=== PATIENT | female | born 1995 | race Caucasian/White ===

== ENCOUNTER 2016-05-10 16:22 | Emergency (ER) | payer OTHER ==
[~2016-05-10] VITALS: Ht 154.9 cm; Wt 68.3 kg
[~2016-05-10 16:22] MED LIST: BCPILLS PO; HYDR-5688 PO; INSPMPHMLG INJ
[2016-05-10 16:28] VITALS: TEMP 37.1; Ht 154.9 cm; Wt 68.3 kg
[2016-05-10] MEDS ORDERED: SODIUM CHLORIDE 0.9% 1000ML 1,000 ML IV STA (17:36)
[2016-05-10] MEDS ORDERED: ONDANSETRON INJ 2 MG/ML 2 ML VIAL IV STA (17:36)
[2016-05-10 17:57] LABS: MANUAL MICROSCOPIC REQUIRED? NO; REVIEW REQ? NO; URINE APPEARANCE CLEAR (CLEAR); URINE BILIRUBIN NEG (NEG); URINE COLOR YELLOW; URINE EPITHELIAL CELL AUTO 20-30 /lpf (0-5); URINE NITRITE NEG (NEG); UROBILINOGEN NEG (NEG)
[2016-05-10 18:09] LABS: BASO % 0.3 %; BASO ABS # 0.02 K/uL (0-0.2); COMPLETE YES; HEMATOCRIT 43.1 % (37-47); IG% 0.3 %; LYMPH % 32.5 %; LYMPH ABS # 2.04 K/uL (1.2-3.4); MEAN CELL VOLUME 88.7 fL (80-100); MEAN CORPUSCULAR HEMOGLOBIN 31.1 pg (25-34); MEAN PLATELET VOLUME 10.6 fL (7.4-10.4); MONO % 6.7 %; NEUT % 59.2 %; PLATELET COUNT 213 K/uL (130-400); RED BLOOD COUNT 4.86 M/uL (4.2-5.4); WHITE BLOOD COUNT 6.27 K/uL (4.8-10.8)
[2016-05-10 18:31] LABS: ALT/SGPT 19 U/L (12-78); BLOOD UREA NITROGEN 7 mg/dl (7-18); BUN/CREATININE RATIO 11.4 (10-20); CALCIUM 9.1 mg/dl (8.5-10.1); CARBON DIOXIDE 23 mmol/L (21-32); CHLORIDE 107 mmol/L (98-107); CREATININE 0.63 mg/dl (0.60-1.20); GLUCOSE 70 mg/dl (70-99); POTASSIUM 3.5 mmol/L (3.5-5.1); SODIUM 140 mmol/L (136-145)
[2016-05-10 18:33] LABS: ALKALINE PHOSPHATASE 83 U/L (45-117); AST/SGOT 10 U/L (15-37)
--- NOTE | 2016-05-10 20:04 | DIAGNOSTIC IMAGING REPORT ---
ABDOMEN AND PELVIS CT WITHOUT CONTRAST CT DOSE: 625.04 mGy.cm HISTORY: Pain b/l lower back pain eval for stone TECHNIQUE: Multiaxial CT images of the abdomen and pelvis were performed without the use of intravenous and oral contrast according to the standard department stone protocol. COMPARISON STUDY: 10/26/2013 FINDINGS: Lung bases remain clear. Liver spleen and pancreas are unremarkable. Kidneys negative for calcification or hydronephrosis. Bowel pattern is nonobstructive. The appendix is normal. Bladder is midline. There is no free fluid within the pelvic cul-de-sac. The appendix is normal. IMPRESSION: Negative study Electronically signed by: Sergey Yeung M.D. 05/10/2016 8:03 PM Dictated Date/Time: 05/10/2016 7:56 PM
[2016-05-10] MEDS ORDERED: SULFAMETHOXAZOLE/TRIMETHOPRIM DS 800/160MG TAB PO STA (20:13)
[2016-05-10] MEDS ORDERED: ONDA4TAB10 SL (20:13)
[2016-05-10] MEDS ORDERED: SULF800T23 PO (20:13)
[2016-05-10 20:34] VITALS: BP 130/85; PULSE 73; O2SAT 99
--- NOTE | 2016-05-10 22:30 | EMERGENCY ROOM VISIT NOTE ---
History Report prepared by Jules: Luis Enrique Arredondo Under the Supervision of: Dr. Zak Albarado M.D. First contact with patient: 17:30 Chief Complaint: ILLNESS Stated Complaint: NAUSEA, VOMITING, B/L BACK PAIN, FATIGUE History of Present Illness The patient is a 20 year old female who presents to the Emergency Room with complaints of constant bilateral lower back pain that started two days ago. The pain is aching in nature and does not radiate to her legs. The pain feels like a past kidney infection that she had two years ago. The patient also complains of nausea and intermittent vomiting for the past five days. She has not vomited today. She denies fevers, abdominal pain, burning with urination or urinary frequency, or abnormal vaginal bleeding or discharge. The patient denies any recent strenuous activity, heavy lifting or falls. She denies any history of kidney stones. She denies hematuria. Source of History: patient Onset: two days ago Position: back (lower bilateral) Symptom Intensity: moderate Quality: ache Timing: constant Associated Symptoms: + nausea, + vomiting, No abdominal pain, No fevers, No urinary symptoms Review of Systems See HPI for pertinent positives & negatives. A total of 10 systems reviewed and were otherwise negative. Past Medical & Surgical Medical Problems: (1) Breech presentation (2) delivery delivered (3) Complicated (4) Diabetes mellitus (5) DKA, type 1 (6) Fever (7) premature rupture of membranes (8) Pyelonephritis Family History Cancer Diabetes mellitus Heart disease Hypertension Kidney disease Kidney stones Social History Smoking Status: Never Smoker Alcohol Use: none Marital Status: single Housing Status: lives with family Occupation Status: employed Current/Historical Medications Scheduled Control Pills ( Control Pills), 1 TAB PO DAILY Insulin Human Lispro (Insulin Humalog Pump ), UNITS INJ UD Ondasetron Odt (Zofran Odt), 4 MG SL Q6H Sulfa/Trimethoprim (Bactrim Ds 800MG/160MG), 1 TAB PO BID Allergies Coded Allergies: No Known Allergies (Verified , 05/10/16) Physical Exam Vital Signs Date Time Temp Pulse Resp B/P Pulse Ox O2 Delivery O2 Flow Rate FiO2 05/10/16 20:34 73 20 130/85 99 05/10/16 18:53 86 20 119/63 100 Room Air 05/10/16 16:28 37.1 83 18 130/80 97 Room Air Physical Exam Constitutional: Vital signs reviewed. Eyes: Pupils are equal round reactive to light. Conjunctiva are noninjected. ENT: Pharynx is clear without erythema or exudate. Mucous membranes are moist. Neck supple without meningeal signs. Respiratory: Clear to auscultation bilaterally. Breath sounds are equal bilaterally. Cardiovascular: Regular rate and rhythm. No rubs or gallops. GI: Soft, nondistended and nontender. Bowel sounds are present. Musculoskeletal: No peripheral edema. No CVA tenderness. No midline tenderness to the thoracic or lumbosacral spine. Integumentary: No cyanosis. Neurological: The patient is awake and alert. No focal deficits. Psychiatric: Normal affect. Medical Decision & Procedures ER Provider Diagnostic Interpretation: CT results as stated below per my review and radiologist interpretation. ABDOMEN AND PELVIS CT WITHOUT CONTRAST CT DOSE: 625.04 mGy.cm HISTORY: Pain b/l lower back pain eval for stone TECHNIQUE: Multiaxial CT images of the abdomen and pelvis were performed without the use of intravenous and oral contrast according to the standard department stone protocol. COMPARISON STUDY: 10/26/2013 FINDINGS: Lung bases remain clear. Liver spleen and pancreas are unremarkable. Kidneys negative for calcification or hydronephrosis. Bowel pattern is nonobstructive. The appendix is normal. Bladder is midline. There is no free fluid within the pelvic cul-de-sac. The appendix is normal. IMPRESSION: Negative study Electronically signed by: Sergey Yeung M.D. 05/10/2016 8:03 PM Dictated Date/Time: 05/10/2016 7:56 PM Laboratory Results 05/10/16 18:00 Red Blood Count 4.86, Mean Corpuscular Volume 88.7, Mean Corpuscular Hemoglobin 31.1, Mean Corpuscular Hemoglobin Concent 35.0, Mean Platelet Volume 10.6, Neutrophils (%) (Auto) 59.2, Lymphocytes (%) (Auto) 32.5, Monocytes (%) (Auto) 6.7, Eosinophils (%) (Auto) 1.0, Basophils (%) (Auto) 0.3, Neutrophils # (Auto) 3.71, Lymphocytes # (Auto) 2.04, Monocytes # (Auto) 0.42, Eosinophils # (Auto) 0.06, Basophils # (Auto) 0.02 05/10/16 18:00 Test 05/10/16 17:45 05/10/16 18:00 Urine Color YELLOW Urine Appearance CLEAR (CLEAR) Urine pH 7.0 (4.5-7.5) Urine Specific [place] 1.000 (1.000-1.030) Urine Protein NEG (NEG) Urine Glucose (UA) NEG (NEG) Urine Ketones NEG (NEG) Urine Occult Blood NEG (NEG) Urine Nitrite NEG (NEG) Urine Bilirubin NEG (NEG) Urine Urobilinogen NEG (NEG) Urine Leukocyte Esterase SMALL (NEG) Urine WBC (Auto) 5-10 /hpf (0-5) Urine RBC (Auto) 0-4 /hpf (0-4) Urine Hyaline Casts (Auto) 0 /lpf (0-5) Urine Epithelial Cells (Auto) 20-30 /lpf (0-5) Urine Bacteria (Auto) NEG (NEG) Urine Test NEG (NEG) White Blood Count 6.27 K/uL (4.8-10.8) Red Blood Count 4.86 M/uL (4.2-5.4) Hemoglobin 15.1 g/dL (12.0-16.0) Hematocrit 43.1 % (37-47) Mean Corpuscular Volume 88.7 fL (80-100) Mean Corpuscular Hemoglobin 31.1 pg (25-34) Mean Corpuscular Hemoglobin Concent 35.0 g/dl (32-36) Platelet Count 213 K/uL (130-400) Mean Platelet Volume 10.6 fL (7.4-10.4) Neutrophils (%) (Auto) 59.2 % Lymphocytes (%) (Auto) 32.5 % Monocytes (%) (Auto) 6.7 % Eosinophils (%) (Auto) 1.0 % Basophils (%) (Auto) 0.3 % Neutrophils # (Auto) 3.71 K/uL (1.4-6.5) Lymphocytes # (Auto) 2.04 K/uL (1.2-3.4) Monocytes # (Auto) 0.42 K/uL (0.11-0.59) Eosinophils # (Auto) 0.06 K/uL (0-0.5) Basophils # (Auto) 0.02 K/uL (0-0.2) RDW Standard Deviation 38.1 fL (36.4-46.3) RDW Coefficient of Variation 11.8 % (11.5-14.5) Immature Granulocyte % (Auto) 0.3 % Immature Granulocyte # (Auto) 0.02 K/uL (0.00-0.02) Anion Gap 10.0 mmol/L (3-11) Est Creatinine Clear Calc Drug Dose 124.8 ml/min Estimated GFR () 148.6 Estimated GFR (Non- 128.2 BUN/Creatinine Ratio 11.4 (10-20) Calcium Level 9.1 mg/dl (8.5-10.1) Total Bilirubin 0.4 mg/dl (0.2-1) Direct Bilirubin < 0.1 mg/dl (0-0.2) Aspartate Amino Transf (AST/SGOT) 10 U/L (15-37) Alanine Aminotransferase (ALT/SGPT) 19 U/L (12-78) Alkaline Phosphatase 83 U/L (45-117) Total Protein 7.4 gm/dl (6.4-8.2) Albumin 3.8 gm/dl (3.4-5.0) Lipase 74 U/L (73-393) Laboratory results as reviewed by me. Medications Administered Medications (Trade) Dose Ordered Sig/Mariam Route Start Time Stop Time Status Last Admin Dose Admin Ondansetron HCl 4 mg 4 mg NOW STAT IV 05/10/16 17:36 05/10/16 17:37 DC 05/10/16 18:03 4 MG Sodium Chloride (Nss 1000ml) 1,000 ml @ 999 mls/hr Q1H1M STAT IV 05/10/16 17:36 05/10/16 18:36 DC 05/10/16 18:04 999 MLS/HR Trimethoprim/ Sulfamethoxazole (Septra Ds 800/ 160MG Tab) 1 tab NOW STAT PO 05/10/16 20:13 05/10/16 20:14 DC 05/10/16 20:26 1 TAB ED Course 1732: The patient was evaluated in room C12b. A complete history and physical exam was performed. 1736: NSS 1000 ml @ 999 mls/hr, Zofran 4 mg IV. 1900: The patient is feeling better. I discussed the results and recommended a CT scan. She agreed. 2009: Discussed the CT results. She will be discharged. 2013: Septra Ds 800/160 mg PO. Medical Decision This is a 20-year-old female presents with back pain with nausea and vomiting. Differential diagnosis includes UTI, pyelonephritis, kidney stone, , metabolic derangement, strain. I did perform a limited focused review of portions of the patient's old chart on the electronic medical record. The patient has had no recent pertinent visits to this hospital. I did evaluate the patient as noted above. The patient is presenting with lower back pain with vomiting. She states her symptoms are similar to when she had a kidney infection. She denies any urinary symptoms. IV access was established. I did treat patient with normal saline IV and Zofran IV. I did order and personally review the patient's urinalysis as described above. The findings are equivocal for infection. A urine culture was sent. Given her prior history of kidney infection, however, I did treat her with Bactrim. I did order and review the patient's blood work as noted in the electronic medical record. Her white blood cell count is not elevated. After discussion with the patient, I did order a CT of the abdomen and pelvis. I did review the images myself as well as the radiology report as described above. There is no evidence of acute abnormality. The cause of her back pain is unclear at this time. I did recommend close follow up with her doctor. She was given a prescription for Bactrim and Zofran and given return instructions as outlined below. Impression Primary Impression: Low back pain Additional Impressions: Vomiting UTI (urinary tract infection) Scribe Attestation The scribe's documentation has been prepared under my direct and personally reviewed by me in its entirety. I confirm that the note above accurately reflects all work, treatment, procedures, and medical decision making performed by me. Departure Information Dispostion Home / Self-Care Prescriptions Sulfa/Trimethoprim (Bactrim Ds 800MG/160MG) Tab 1 TAB PO BID, #14 TAB Prov: Zak Albarado M.D. 05/10/16 Ondasetron Odt (ZOFRAN ODT) 4 Mg Tab 4 MG SL Q6H for Nausea, #10 TAB Prov: Zak Albarado M.D. 05/10/16 Referrals No Doctor, Assigned (PCP) Forms HOME CARE DOCUMENTATION FORM, IMPORTANT VISIT INFORMATION, WORK / SCHOOL INSTRUCTIONS Patient Instructions ED Back Pain Acute Chronic, My [facility] Additional Instructions You have been examined and treated today on an emergency basis only. This is not a substitute for, or an effort to provide, complete comprehensive medical care. It is impossible to recognize and treat all injuries or illnesses in a single emergency department visit. It is therefore important that you follow up closely with your physician. Call as soon as possible for an appointment. Return for worsening symptoms or if you develop fever, vomiting, abdominal pain , loss of control of your bowel or bladder, numbness or weakness to your legs, numbness to your private area, difficulty urinating, or any other concerning symptoms. Problem Qualifiers Primary Impression: Low back pain Chronicity: acute Back pain laterality: bilateral Sciatica presence: without sciatica Qualified Codes: M54.5 - Low back pain Additional Impressions: Vomiting Vomiting type: unspecified Vomiting Intractability: non-intractable Nausea presence: with nausea Qualified Codes: R11.2 - Nausea with vomiting, unspecified UTI (urinary tract infection) Urinary tract infection type: site unspecified Hematuria presence: without hematuria Qualified Codes: N39.0 - Urinary tract infection, site not specified
== END 2016-05-10 20:35 | disposition home or self-care (01) ==
LOC: C.EDB 16:23 → C.EDC 20:35
DX: M54.5 Low back pain (principal); N39.0 Urinary tract infection, site not specified; R11.10 Vomiting, unspecified; A49.8 Other bacterial infections of unspecified site; E11.9 Type 2 diabetes mellitus without complications; Z96.41 Presence of insulin pump (external) (internal)

== ENCOUNTER → 2016-05-15 | Outpatient (CLI) | payer OTHER ==
[~2016-05-15] MED LIST changes: -HYDR-5688 PO; +ONDA4TAB10 SL; +SULF800T23 PO
== END | disposition home or self-care (01) ==
LOC: C.PAPS 09:55
PROVIDERS: ATTEND Physician Assistant
DX: Z12.4 Encounter for screening for malignant neoplasm of cervix (principal)

== ENCOUNTER → 2016-05-15 | Outpatient (CLI) | payer OTHER | END | disposition home or self-care (01) | LOC: C.LABSPEC 17:36 | PROVIDERS: ATTEND Physician Assistant | DX: Z01.419 Encounter for gynecological examination (general) (routine) without abnormal findings (principal) ==

== ENCOUNTER → 2016-05-31 | Outpatient (CLI) | payer OTHER ==
[2016-05-31 18:24] LABS: RATIO 10.4 mcg/mg (0-30.0); THYROID STIMULATING HORMONE 2.06 uIu/ml (0.300-4.500)
[2016-06-01 06:15] LABS: ESTIMATED AVERAGE GLUCOSE 203 mg/dl; HA1C FLAG Normal (Normal)
== END | disposition home or self-care (01) ==
LOC: C.LAB1850 16:36
PROVIDERS: ATTEND Internal Medicine Endocrinology, Diabetes & Metabolism
DX: E10.9 Type 1 diabetes mellitus without complications (principal); E55.9 Vitamin D deficiency, unspecified

== ENCOUNTER → 2016-09-17 | Outpatient (CLI) | payer OTHER ==
[2016-09-17 16:30] LABS: URINE APPEARANCE CLEAR (CLEAR); URINE BILIRUBIN NEG (NEG); URINE COLOR YELLOW; URINE NITRITE NEG (NEG); URINE SPECIFIC GRAVITY 1.037 (1.000-1.030); UROBILINOGEN NEG (NEG)
[2016-09-17 16:47] LABS: MANUAL MICROSCOPIC REQUIRED? NO; REVIEW REQ? NO
== END | disposition home or self-care (01) ==
LOC: C.LAB1850 15:21
PROVIDERS: ATTEND Physician Assistant
DX: R39.9 Unspecified symptoms and signs involving the genitourinary system (principal)

== ENCOUNTER → 2017-09-29 | Outpatient (CLI) | payer OTHER ==
[~2017-09-29] MED LIST changes: +BUPR-267 PO; +CHLO4TAB20 PO; -ONDA4TAB10 SL; -SULF800T23 PO
[2017-09-29 18:01] LABS: ALBUMIN 3.3 gm/dl (3.4-5.0); ALKALINE PHOSPHATASE 79 U/L (45-117); ALT/SGPT 26 U/L (12-78); AST/SGOT 12 U/L (15-37); BLOOD UREA NITROGEN 5 mg/dl (7-18); CALCIUM 8.6 mg/dl (8.5-10.1); CARBON DIOXIDE 21 mmol/L (21-32); CHOLESTEROL 136 mg/dl (0-200); CREATININE 0.81 mg/dl (0.60-1.20); GLUCOSE 279 mg/dl (70-99); LDL CHOLESTEROL CALCULATED 62 mg/dl; POTASSIUM 4.1 mmol/L (3.5-5.1); SODIUM 135 mmol/L (136-145); TOTAL PROTEIN 7.1 gm/dl (6.4-8.2)
[2017-09-30 06:09] LABS: HEMOGLOBIN A1C 9.6 % (4.5-5.6)
== END | disposition home or self-care (01) ==
LOC: C.LABBFT 11:24
PROVIDERS: ATTEND Physician Assistant Medical
DX: R74.8 Abnormal levels of other serum enzymes (principal); E10.9 Type 1 diabetes mellitus without complications

== ENCOUNTER 2020-10-23 10:54 | Inpatient (IN) ==
[2020-10-23] MEDS ORDERED: SODIUM CHLORIDE 0.9% 1000ML 2,000 ML IV ONE (12:14)
[2020-10-23] MEDS ORDERED: ACETAMINOPHEN 1,000 MG/100 ML VIAL IV STA (12:14)
[2020-10-23] MEDS ORDERED: FAMOTIDINE 20MG IV PUSH 20 MG/5 ML SYR IV STA (12:14)
[2020-10-23] MEDS ORDERED: ONDANSETRON INJ 2 MG/ML 2 ML VIAL IV STA (12:14)
[2020-10-23 12:29] LABS: Appearance Urine Clear (Clear); Bilirubin Urine Negative (Negative); Blood Urine Negative (Negative); Color Urine Yellow; Glucose Urine UA 3+ (Negative); Ketones Urine 4+ (Negative); Leukocyte Esterase Urine Negative (Negative); Nitrite Urine Negative (Negative); Protein Urine Negative (Negative); Specific Gravity Urine 1.034 (1.000-1.030); Urobilinogen Urine Negative (Negative)
[2020-10-23 12:38] LABS: Basophils # (auto) 0.02 K/uL (0-0.2); Basophils % (auto) 0.3 %; Eosinophils # (auto) 0.03 K/uL (0-0.5); Eosinophils % (auto) 0.4 %; Hematocrit (blood only) 45.3 % (37-47); Hemoglobin 15.6 g/dL (12.0-16.0); Immature Granulocytes # (auto) 0.01 K/uL (0.00-0.02); Immature Granulocytes % (auto) 0.1 %; Lymphocytes # (auto) 0.93 K/uL (1.2-3.4); Lymphocytes % (auto) 12.2 %; Mean Corpuscular Hemoglobin 30.4 pg (25-34); Mean Corpuscular Hgb Conc 34.4 g/dL (32-36); Mean Corpuscular Volume 88.1 fL (80-100); Mean Platelet Volume 11.1 fL (7.4-10.4); Monocytes # (auto) 0.23 K/uL (0.11-0.59); Neutrophils # (auto) 6.42 K/uL (1.4-6.5); Platelet Count 216 K/uL (130-400); RDW Coefficient of Variation 11.5 % (11.5-14.5); Red Blood Count 5.14 M/uL (4.2-5.4); White Blood Count 7.64 K/uL (4.8-10.8)
[2020-10-23 12:56] LABS: Pregnancy Test, Serum Negative (Negative)
[2020-10-23 13:09] LABS: Albumin Level 4.1 gm/dl (3.4-5.0); BUN Creatinine Ratio 14.8 (10-20); Bilirubin Direct 0.2 mg/dl (0-0.2); Bilirubin,Total 0.6 mg/dl (0.2-1); Calcium 9.9 mg/dl (8.5-10.1); Creatinine Clr Calc Pharmacy 71.2 ml/min; Est GFR (African American) 90.1 ml/min; Est GFR (Non-African American) 77.7 ml/min; Globulin 4.2 gm/dl (2.5-4.0); Phosphorus 4.1 mg/dl (2.5-4.9); Potassium 5.1 mmol/L (3.5-5.1); Total Protein 8.3 gm/dl (6.4-8.2)
[2020-10-23] MEDS ORDERED: METOCLOPRAMIDE HCL INJ 5 MG/ML 2 ML VIAL IV STA (13:33)
[2020-10-23] MEDS ORDERED: diphenhydrAMINE 50 MG/ML VIAL IV STA (13:33)
[2020-10-23 13:47] LABS: Beta-Hydroxybutyrate 84.35 mg/dl (0.2-2.81)
[2020-10-23] MEDS ORDERED: STAT IV Infusion **Titration per Protocol STA ×4 (13:54→14:39)
[2020-10-23] MEDS ORDERED: DEXTROSE 50% 50 ML SYRINGE IV PRN (14:15)
[2020-10-23] MEDS ORDERED: CARBOHYDRATES FOR HYPOGLYCEMIA PO PRN (14:15)
[2020-10-23] MEDS ORDERED: GLUCOSE 10 TABS/TUBE PO PRN (14:15)
[2020-10-23] MEDS ORDERED: GLUCOSE 40% GEL 15 GM TUBE PO PRN (14:15)
[2020-10-23] MEDS ORDERED: GLUCAGON FOR INJ 1 MG VIAL IM PRN (14:15)
[2020-10-23 14:21] LABS: Base Excess VBG -16.8 mEq/L; Oxygen Saturation VBG 82.8 %; pH VBG 7.13 (7.36-7.41)
[2020-10-23] MEDS: INSULIN REGULAR 250 UNITS in SODIUM CHLORIDE 0.9% 247.5 ML IV SCH (14:27)
[2020-10-23] MEDS: SODIUM CHLOR 0.45% + 20MEQ KCL 20 MEQ/1,000 ML BAG IV SCH ×2 (14:27→19:03)
--- NOTE | 2020-10-23 14:32 | History & Physical Report ---
Date of Service October 23, 2020 Assessment & Plan (1) Diabetes mellitus type 1: Plan: Patient an active ketoacidosis with an anion gap of 17 Will admit to PCU bed Start insulin protocol Will keep on clear liquids only for now, advance when sugars normalize Symptomatic treatment for nausea and headache History of Present Illness Chief Complaint: Nausea and vomiting Primary Care Provider: Nito Velazco MD This is a 25-year-old female with past medical history of type 1 diabetes mellitus on insulin pump, migraine and that presents today complaining nausea vomiting. Patient is somewhat uncomfortable secondary to headache but she does answer questions appropriately. Patient tells me she is feeling fine yesterday but approximately 830 this morning she started to have some nausea. This became vomiting and some generalized abdominal pain diarrhea 9 this morning. She is on insulin pump and changed the site yesterday evening. The pump seem to be functioning normally she does not feel that there were any issues with the equipment. She recognizes symptoms of DKA and came to the emergency room. She was found to have a blood sugar over 400 with an anion gap of 17. Patient is now being admitted for treatment of diabetic ketoacidosis. Allergies Allergy/AdvReac Type Severity Reaction Status Date / Time No Known Allergies Allergy Verified 10/23/20 12:18 Home Medications Medication Instructions Recorded Confirmed Type glucagon HCl 1 mg/mL solution for 1 mg SUBCUT UD PRN #1 ea 10/02/18 10/23/20 History injection insulin lispro 100 unit/mL 100 unit CONTINUOUS SUBCUTANEOUS 01/24/20 10/23/20 Rx subcutaneous solution (Humalog INFUSION DAILY 90 Days #90 ml U-100 Insulin) norethindrone 1 mg-ethinyl 1 tab PO DAILY 10/23/20 10/23/20 History estradiol 20 mcg (21)-iron 75 mg (7) tablet (Microgestin FE 03/15 (28)) venlafaxine 37.5 mg 37.5 mg PO DAILY 10/23/20 10/23/20 History capsule,extended release 24 hr venlafaxine 75 mg capsule,extended 75 mg PO DAILY 10/23/20 10/23/20 History release 24 hr Past Med/Surg History Medical History Chlamydia infection Depression with anxiety Diabetes mellitus type 1 Genital herpes simplex History of pyelonephritis Varicella Vitamin D deficiency Surgical History No significant past surgical history Family History Unknown Type 1 diabetes mellitus Hypertension Thyroid disorder Grandmother Cervical cancer Maternal Grandmother Grandfather Type 2 diabetes mellitus Maternal Other Cerebral aneurysm Denies family history of Ovarian cancer Prostate cancer Myocardial infarction Breast cancer Colorectal cancer Uterine cancer Social History Smoking Status: Current every day smoker Tobacco Type: Cigarettes Second Hand Exposure: Yes; Hx Alcohol Use: Yes Hx Substance Use: No Preferred Language: Lithuanian Visual Impairment: No Limitations Hearing Ability: Normal marital status: single Current Living Situation: Family current occupational status: employed current occupation: [employer] Feels Safe at Home: Yes Dental Care, Regularly: No Physical Activity Frequency: Does not Exercise Review of Systems Constitutional: no fever, no chills, no weakness, no weight loss and no weight gain Eyes: as per Subjective / HPI Respiratory: no cough, no chest congestion, no dyspnea and no dyspnea on exertion Cardiovascular: no chest pain, no orthopnea, no palpitations, no light headedness and no edema Gastrointestinal: + abdominal pain, + nausea and + vomiting; no constipation and no diarrhea/loose stools Genitourinary: no dysuria, no difficulty urinating, no urinary frequency, no urinary hesitancy, no urinary urgency and no flank pain Musculoskeletal: no back pain, no neck pain, no joint pain, no stiffness and no myalgia Integumentary: no rash Neurologic: + headache(s); no gait abnormality, no unsteadiness, no falls and no generalized weakness Physical Exam Constitutional: + ill appearing; no acute distress Neck: trachea midline, no thyromegaly Respiratory: normal respiratory effort Auscultation: lungs clear to auscultation bilaterally; no crackles, no rales, no rhonchi and no wheezes Cardiovascular: Rate/Rhythm: regular rate and regular rhythm Heart Sounds: normal S1 and normal S2 Gastrointestinal (Abdomen): Inspection/Auscultation: abdomen normal to inspection Percussion/Palpation: abdomen soft; abdomen nontender, no guarding, abdomen not rigid and no hepatosplenomegaly Skin: no rashes, warm and dry Results & Data Results & Data ([facility]) Vital Signs (Past 12 Hours) Vital Signs Temp Pulse Pulse Resp BP BP Pulse Ox 10/23/20 13:41 89 20 119/65 97 10/23/20 12:30 90 18 98 10/23/20 11:08 36.9 C 96 H 20 110/77 96 Laboratory Results Laboratory Results WBC 7.64 K/uL (4.8-10.8) 10/23/20 12:25 RBC 5.14 M/uL (4.2-5.4) 10/23/20 12:25 Hgb 15.6 g/dL (12.0-16.0) 10/23/20 12:25 Hct 45.3 % (37-47) 10/23/20 12:25 MCV 88.1 fL (80-100) 10/23/20 12:25 MCH 30.4 pg (25-34) 10/23/20 12:25 MCHC 34.4 g/dL (32-36) 10/23/20 12:25 RDW Std Deviation 37.0 fL (36.4-46.3) 10/23/20 12:25 RDW Coeff of [place] 11.5 % (11.5-14.5) 10/23/20 12:25 Plt Count 216 K/uL (130-400) 10/23/20 12:25 MPV 11.1 fL (7.4-10.4) H 10/23/20 12:25 Immature Gran % (Auto) 0.1 % 10/23/20 12:25 Neut % (Auto) 84.0 % 10/23/20 12:25 Lymph % (Auto) 12.2 % 10/23/20 12:25 [place] % (Auto) 3.0 % 10/23/20 12:25 Eos % (Auto) 0.4 % 10/23/20 12:25 Baso % (Auto) 0.3 % 10/23/20 12:25 Neut # (Auto) 6.42 K/uL (1.4-6.5) 10/23/20 12:25 Lymph # (Auto) 0.93 K/uL (1.2-3.4) L 10/23/20 12:25 [place] # (Auto) 0.23 K/uL (0.11-0.59) 10/23/20 12:25 Eos # (Auto) 0.03 K/uL (0-0.5) 10/23/20 12:25 Baso # (Auto) 0.02 K/uL (0-0.2) 10/23/20 12:25 Immature Gran # (Auto) 0.01 K/uL (0.00-0.02) 10/23/20 12:25 VBG pH 7.13 (7.36-7.41) L 10/23/20 13:56 VBG pCO2 34 mmHg (38-50) L 10/23/20 13:56 VBG pO2 56 mmHg 10/23/20 13:56 VBG HCO3 11 mmol/L 10/23/20 13:56 VBG O2 Saturation 82.8 % 10/23/20 13:56 VBG Base Excess -16.8 mEq/L 10/23/20 13:56 Barometric Pressure 730.4 mm/Hg 10/23/20 13:56 Sodium 132 mmol/L (136-145) L 10/23/20 12:25 Potassium 5.1 mmol/L (3.5-5.1) 10/23/20 12:25 Chloride 100 mmol/L (98-107) 10/23/20 12:25 Carbon Dioxide 15 mmol/L (21-32) L 10/23/20 12:25 Anion Gap 17.0 (3-11) H 10/23/20 12:25 BUN 15 mg/dl (7-18) 10/23/20 12:25 Creatinine 1.00 mg/dl (0.6-1.2) 10/23/20 12:25 Est Cr Clr Drug Dosing 71.2 ml/min 10/23/20 12:25 Est GFR ( Amer) 90.1 ml/min 10/23/20 12:25 Est GFR (Non-Af Amer) 77.7 ml/min 10/23/20 12:25 BUN/Creatinine Ratio 14.8 (10-20) 10/23/20 12:25 Glucose 422 mg/dl (70-99) H* 10/23/20 12:25 Calcium 9.9 mg/dl (8.5-10.1) 10/23/20 12:25 Phosphorus 4.1 mg/dl (2.5-4.9) 10/23/20 12:25 Magnesium 2.0 mg/dl (1.8-2.4) 10/23/20 12:25 Total Bilirubin 0.6 mg/dl (0.2-1) 10/23/20 12:25 Direct Bilirubin 0.2 mg/dl (0-0.2) 10/23/20 12:25 AST 20 U/L (15-37) 10/23/20 12:25 ALT 30 U/L (12-78) 10/23/20 12:25 Alkaline Phosphatase 124 U/L (45-117) H 10/23/20 12:25 Total Protein 8.3 gm/dl (6.4-8.2) H 10/23/20 12:25 Albumin 4.1 gm/dl (3.4-5.0) 10/23/20 12:25 Globulin 4.2 gm/dl (2.5-4.0) H 10/23/20 12:25 Albumin/Globulin Ratio 1.0 (0.9-2) 10/23/20 12:25 Lipase 54 U/L (73-393) L 10/23/20 12:25 Beta-Hydroxybutyric Acd 84.35 mg/dl (0.2-2.81) H 10/23/20 12:25 HCG, Qual Negative (Negative) 10/23/20 12:25 Urine Color Yellow 10/23/20 11:45 Urine Appearance Clear (Clear) 10/23/20 11:45 Urine pH 5.0 (4.5-7.5) 10/23/20 11:45 Ur Specific [place] 1.034 (1.000-1.030) H 10/23/20 11:45 Urine Protein Negative (Negative) 10/23/20 11:45 Urine Glucose (UA) 3+ (Negative) H 10/23/20 11:45 Urine Ketones 4+ (Negative) H 10/23/20 11:45 Urine Blood Negative (Negative) 10/23/20 11:45 Urine Nitrite Negative (Negative) 10/23/20 11:45 Urine Bilirubin Negative (Negative) 10/23/20 11:45 Urine Urobilinogen Negative (Negative) 10/23/20 11:45 Ur Leukocyte Esterase Negative (Negative) 10/23/20 11:45 COVID-19 Eval Order Covid19 at [facility] 10/23/20 12:30 SARS-CoV-2 (PCR) NEGATIVE (Negative) 10/23/20 12:30 PG Care Time/CCT Total # of Minutes Spent Total Time Spent with Patient: Total time spent is greater than 50% in coordination of care (as documented) at patient's floor/unit and/or counseling patient: Coding Level of Care Code 71565 Initial Inpt Care Lvl 3 Diagnoses Diabetes mellitus type 1 E10.9
--- NOTE | 2020-10-23 15:58 | Emergency Department Note ---
Impression & Plan Diabetic ketoacidosis associated with type 1 diabetes mellitus, Nausea & vomiting, Migraine, Acute dehydration ED Provider Note NAME: TANK Kelley ISAIAH AGE: 25 SEX: F ARRIVES VIA: Walk-In INFORMANT: Patient, ED PROVIDER(S): Dakota Wright MD CHIEF COMPLAINT: Vomiting, hyperglycemia. PLAN: Disposition: Admit MEDICAL DECISION MAKING: The patient is a pleasant 25-year-old woman with a past medical history of type 1 diabetes who presents to the emergency department with worsening nausea and vomiting and development of migraine that began this morning with elevation of her blood sugars in the 500s which have continued to be elevated despite admini stering her sliding scale from her pump. 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 Prior today she denies any recent illness including denies cough, congestion, fevers, chills, urinary symptoms. On arrival she appears uncomfortable but no acute distress, afebrile with stable vital signs. She appears clinically dry. Her abdomen is nontender. WBC, H/H and platelets within normal limits. Chemistry demonstrates anion gap metabolic acidosis with bicarb of 15 and anion gap of 17. Glucose is 422. Beta hydroxy butyric acid is 84. Sodium corrects to normal range. Electrolytes otherwise unremarkable. LFTs without significant abnormality. Lipase is not elevated. hCG was negative. UA without evidence of infection. COVID-19 PCR is negative. Patient was treated initially with 2 L IV fluid hydration and antiemetics. Given evidence of DKA she was ordered for maintenance fluid with potassium and insulin drip was ordered. Patient was in agreement with plan for admission. Case was discussed with Dr. Guerrero, [facility] hospitalist, who will evaluate the patient for admission. Triage Nursing notes reviewed and agree them. Prior medical records reviewed Vital Signs: reviewed and remarkable for no significant abnormalities Differential diagnosis: Gastroenteritis, food borne illness, infections, appendicitis, diverticulitis, inflammatory bowel disease, obstruction, GI bleed, biliary pathology, volvulus, as well as other pathologies. ER treatment provided: See below. Diagnostics interpreted by me: Cardiac Monitoring: An order for continuous cardiac monitoring was placed and demonstrated NSR, 96 bpm, no ectopy Laboratory studies: See below Imaging studies: See below Consultation(s): Case was discussed with Dr. Guerrero, [facility] hospitalist, who will evaluate the patient for admission. HPI: The patient is a pleasant 25-year-old woman with a past medical history of type 1 diabetes who presents to the emergency department with worsening nausea and vomiting and development of migraine that began this morning with elevation of her blood sugars in the 500s which have continued to be elevated despite administering her sliding scale from her pump. 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 Prior today she denies any recent illness including denies cough, congestion, fevers, chills, urinary symptoms. ROS: See above HPI for pertinent positives & negatives. A total of 10 systems reviewed and were otherwise negative. PAST MEDICAL HISTORY:See Below PAST SURGICAL HISTORY:See Below FAMILY HISTORY:See Below SOCIAL HISTORY:See Below HOME MEDICATIONS:See Below ALLERGIES:See Below VITALS:See Below PHYSICAL EXAMINATION: GENERAL: Awake, alert, uncomfortable-appearing, in no distress HENT: Normocephalic, atraumatic. Oropharynx with dry mucous membranes and otherwise unremarkable. EYES: Normal conjunctiva. Sclera non-icteric. NECK: Supple. No nuchal rigidity. FROM. No JVD. RESPIRATORY: Clear to auscultation. CARDIAC: Regular rate, normal rhythm. Extremities warm and well perfused. Pulses equal. ABDOMEN: Soft, non-distended. No tenderness to palpation. No rebound or guarding. No masses. RECTAL: Deferred. MUSCULOSKELETAL: Chest examination reveals no tenderness. The back is symmetrical on inspection without obvious abnormality. There is no CVA tenderness to palpation. No joint edema. LOWER EXTREMITIES: Calves are equal size bilaterally and non-tender. No edema. No discoloration. NEURO: Normal sensorium. No sensory or motor deficits noted. SKIN: No rash or jaundice noted. ED COURSE: Critical Care: I have personally spent greater than 45 minutes of critical care time in the direct management of this patient. This includes bedside care, interpretation of diagnostic studies, and testing, discussion with consultants, patient, and family members, and other required patient management activities. This 45 minutes is in excess of all separately billable procedures. Dakota Wright MD Past Med/Surg History Medical History Chlamydia infection Depression with anxiety Diabetes mellitus type 1 Genital herpes simplex History of pyelonephritis Varicella Vitamin D deficiency Surgical History No significant past surgical history Family History Unknown Type 1 diabetes mellitus Hypertension Thyroid disorder Grandmother Cervical cancer Maternal Grandmother Grandfather Type 2 diabetes mellitus Maternal Other Cerebral aneurysm Denies family history of Ovarian cancer Prostate cancer Myocardial infarction Breast cancer Colorectal cancer Uterine cancer Social History Smoking Status: Current some day smoker Tobacco Type: Cigarettes Cigarettes Per Day: 2; Second Hand Exposure: Yes; Tobacco Cessation Education Requested by Patient: Yes Hx Alcohol Use: Yes Alcohol type: beer Hx Substance Use: No Preferred Language: Citizen Of [place] Communication Ability: Effective Visual Impairment: No Limitations Hearing Ability: Normal Beliefs That Will Affect Care: None marital status: single Current Living Situation: Spouse and Family current occupational status: employed current occupation: [employer] Feels Safe at Home: Yes Dental Care, Regularly: No Physical Activity Frequency: Does not Exercise Assistive Devices: None Allergies Allergies Allergy/AdvReac Type Severity Reaction Status Date / Time No Known Allergies Allergy Verified 10/23/20 12:18 Home Meds Home Medications Medication Instructions Recorded Confirmed glucagon HCl 1 mg/mL solution for 1 mg SUBCUT UD PRN #1 ea 10/02/18 10/23/20 injection norethindrone 1 mg-ethinyl 1 tab PO DAILY 10/23/20 10/23/20 estradiol 20 mcg (21)-iron 75 mg (7) tablet (Microgestin FE 03/15 (28)) venlafaxine 37.5 mg 37.5 mg PO DAILY 10/23/20 10/23/20 capsule,extended release 24 hr venlafaxine 75 mg capsule,extended 75 mg PO DAILY 10/23/20 10/23/20 release 24 hr Previous Rx's Medication Instructions Recorded insulin lispro 100 unit/mL 100 unit CONTINUOUS SUBCUTANEOUS 01/24/20 subcutaneous solution (Humalog INFUSION DAILY 90 Days #90 ml U-100 Insulin) Results & Data (ED) Vital Signs Vital Signs - 24 hr 10/23/20 11:08 10/23/20 12:30 10/23/20 13:41 Temperature 36.9 C Temperature Source Oral Pulse Rate 96 H 90 Pulse Rate [Apical] 89 Respiratory Rate 20 18 20 Respiratory Effort / Characteristics Non-Labored Spontaneous Respiratory Depth Normal Blood Pressure 110/77 Blood Pressure [Right Arm] 119/65 Blood Pressure Mean 88 Blood Pressure Mean [Right Arm] 83 Blood Pressure Position Sitting Pulse Oximetry 96 98 97 Oxygen Delivery Method Room Air Room Air Room Air Sepsis Recent Fever Within 48 Hours No Sepsis New/Unexplained Change in Mental Status N/A Sepsis Action Taken by Nursing No Action Required Laboratory Data Attestation: I reviewed the patient's lab results. Result diagrams: 10/23/20 12:25 10/23/20 18:32 Lab Results 10/23/20 10/23/20 10/23/20 Range/Units 11:45 12:25 12:25 WBC 7.64 (4.8-10.8) K/uL RBC 5.14 (4.2-5.4) M/uL Hgb 15.6 (12.0-16.0) g/dL Hct 45.3 (37-47) % MCV 88.1 (80-100) fL MCH 30.4 (25-34) pg MCHC 34.4 (32-36) g/dL RDW Std Deviation 37.0 (36.4-46.3) fL RDW Coeff of Esther 11.5 (11.5-14.5) % Plt Count 216 (130-400) K/uL MPV 11.1 H (7.4-10.4) fL Immature Gran % (Auto) 0.1 % Neut % (Auto) 84.0 % Lymph % (Auto) 12.2 % Lowndes % (Auto) 3.0 % Eos % (Auto) 0.4 % Baso % (Auto) 0.3 % Neut # (Auto) 6.42 (1.4-6.5) K/uL Lymph # (Auto) 0.93 L (1.2-3.4) K/uL Lowndes # (Auto) 0.23 (0.11-0.59) K/uL Eos # (Auto) 0.03 (0-0.5) K/uL Baso # (Auto) 0.02 (0-0.2) K/uL Immature Gran # (Auto) 0.01 (0.00-0.02) K/uL VBG pH (7.36-7.41) VBG pCO2 (38-50) mmHg VBG pO2 mmHg VBG HCO3 mmol/L VBG O2 Saturation % VBG Base Excess mEq/L Barometric Pressure mm/Hg Sodium 132 L (136-145) mmol/L Potassium 5.1 (3.5-5.1) mmol/L Chloride 100 (98-107) mmol/L Carbon Dioxide 15 L (21-32) mmol/L Anion Gap 17.0 H (3-11) BUN 15 (7-18) mg/dl Creatinine 1.00 (0.6-1.2) mg/dl Est Cr Clr Drug Dosing 71.2 ml/min Est GFR ( Amer) 90.1 ml/min Est GFR (Non-Af Amer) 77.7 ml/min BUN/Creatinine Ratio 14.8 (10-20) Glucose 422 H* (70-99) mg/dl POC Glucose (70-99) mg/dl Calcium 9.9 (8.5-10.1) mg/dl Phosphorus 4.1 (2.5-4.9) mg/dl Magnesium 2.0 (1.8-2.4) mg/dl Total Bilirubin 0.6 (0.2-1) mg/dl Direct Bilirubin 0.2 (0-0.2) mg/dl AST 20 (15-37) U/L ALT 30 (12-78) U/L Alkaline Phosphatase 124 H (45-117) U/L Total Protein 8.3 H (6.4-8.2) gm/dl Albumin 4.1 (3.4-5.0) gm/dl Globulin 4.2 H (2.5-4.0) gm/dl Albumin/Globulin Ratio 1.0 (0.9-2) Lipase 54 L (73-393) U/L Beta-Hydroxybutyric Acd 84.35 H (0.2-2.81) mg/dl HCG, Qual (Negative) Urine Color Yellow Urine Appearance Clear (Clear) Urine pH 5.0 (4.5-7.5) Ur Specific Lawson 1.034 H (1.000-1.030) Urine Protein Negative (Negative) Urine Glucose (UA) 3+ H (Negative) Urine Ketones 4+ H (Negative) Urine Blood Negative (Negative) Urine Nitrite Negative (Negative) Urine Bilirubin Negative (Negative) Urine Urobilinogen Negative (Negative) Ur Leukocyte Esterase Negative (Negative) COVID-19 Eval Order SARS-CoV-2 (PCR) (Negative) 10/23/20 10/23/20 10/23/20 Range/Units 12:25 12:30 12:30 WBC (4.8-10.8) K/uL RBC (4.2-5.4) M/uL Hgb (12.0-16.0) g/dL Hct (37-47) % MCV (80-100) fL MCH (25-34) pg MCHC (32-36) g/dL RDW Std Deviation (36.4-46.3) fL RDW Coeff of Esther (11.5-14.5) % Plt Count (130-400) K/uL MPV (7.4-10.4) fL Immature Gran % (Auto) % Neut % (Auto) % Lymph % (Auto) % Lowndes % (Auto) % Eos % (Auto) % Baso % (Auto) % Neut # (Auto) (1.4-6.5) K/uL Lymph # (Auto) (1.2-3.4) K/uL Lowndes # (Auto) (0.11-0.59) K/uL Eos # (Auto) (0-0.5) K/uL Baso # (Auto) (0-0.2) K/uL Immature Gran # (Auto) (0.00-0.02) K/uL VBG pH (7.36-7.41) VBG pCO2 (38-50) mmHg VBG pO2 mmHg VBG HCO3 mmol/L VBG O2 Saturation % VBG Base Excess mEq/L Barometric Pressure mm/Hg Sodium (136-145) mmol/L Potassium (3.5-5.1) mmol/L Chloride (98-107) mmol/L Carbon Dioxide (21-32) mmol/L Anion Gap (3-11) BUN (7-18) mg/dl Creatinine (0.6-1.2) mg/dl Est Cr Clr Drug Dosing ml/min Est GFR ( Amer) ml/min Est GFR (Non-Af Amer) ml/min BUN/Creatinine Ratio (10-20) Glucose (70-99) mg/dl POC Glucose (70-99) mg/dl Calcium (8.5-10.1) mg/dl Phosphorus (2.5-4.9) mg/dl Magnesium (1.8-2.4) mg/dl Total Bilirubin (0.2-1) mg/dl Direct Bilirubin (0-0.2) mg/dl AST (15-37) U/L ALT (12-78) U/L Alkaline Phosphatase (45-117) U/L Total Protein (6.4-8.2) gm/dl Albumin (3.4-5.0) gm/dl Globulin (2.5-4.0) gm/dl Albumin/Globulin Ratio (0.9-2) Lipase (73-393) U/L Beta-Hydroxybutyric Acd (0.2-2.81) mg/dl HCG, Qual Negative (Negative) Urine Color Urine Appearance (Clear) Urine pH (4.5-7.5) Ur Specific Lawson (1.000-1.030) Urine Protein (Negative) Urine Glucose (UA) (Negative) Urine Ketones (Negative) Urine Blood (Negative) Urine Nitrite (Negative) Urine Bilirubin (Negative) Urine Urobilinogen (Negative) Ur Leukocyte Esterase (Negative) COVID-19 Eval Order Covid19 at [facility] SARS-CoV-2 (PCR) NEGATIVE (Negative) 10/23/20 10/23/20 Range/Units 13:56 14:23 WBC (4.8-10.8) K/uL RBC (4.2-5.4) M/uL Hgb (12.0-16.0) g/dL Hct (37-47) % MCV (80-100) fL MCH (25-34) pg MCHC (32-36) g/dL RDW Std Deviation (36.4-46.3) fL RDW Coeff of Esther (11.5-14.5) % Plt Count (130-400) K/uL MPV (7.4-10.4) fL Immature Gran % (Auto) % Neut % (Auto) % Lymph % (Auto) % Lown[place] % (Auto) % Eos % (Auto) % Baso % (Auto) % Neut # (Auto) (1.4-6.5) K/uL Lymph # (Auto) (1.2-3.4) K/uL L[place] # (Auto) (0.11-0.59) K/uL Eos # (Auto) (0-0.5) K/uL Baso # (Auto) (0-0.2) K/uL Immature Gran # (Auto) (0.00-0.02) K/uL VBG pH 7.13 L (7.36-7.41) VBG pCO2 34 L (38-50) mmHg VBG pO2 56 mmHg VBG HCO3 11 mmol/L VBG O2 Saturation 82.8 % VBG Base Excess -16.8 mEq/L Barometric Pressure 730.4 mm/Hg Sodium (136-145) mmol/L Potassium (3.5-5.1) mmol/L Chloride (98-107) mmol/L Carbon Dioxide (21-32) mmol/L Anion Gap (3-11) BUN (7-18) mg/dl Creatinine (0.6-1.2) mg/dl Est Cr Clr Drug Dosing ml/min Est GFR ( Amer) ml/min Est GFR (Non-Af Amer) ml/min BUN/Creatinine Ratio (10-20) Glucose (70-99) mg/dl POC Glucose 354 H* (70-99) mg/dl Calcium (8.5-10.1) mg/dl Phosphorus (2.5-4.9) mg/dl Magnesium (1.8-2.4) mg/dl Total Bilirubin (0.2-1) mg/dl Direct Bilirubin (0-0.2) mg/dl AST (15-37) U/L ALT (12-78) U/L Alkaline Phosphatase (45-117) U/L Total Protein (6.4-8.2) gm/dl Albumin (3.4-5.0) gm/dl Globulin (2.5-4.0) gm/dl Albumin/Globulin Ratio (0.9-2) Lipase (73-393) U/L Beta-Hydroxybutyric Acd (0.2-2.81) mg/dl HCG, Qual (Negative) Urine Color Urine Appearance (Clear) Urine pH (4.5-7.5) Ur Specific Lawson (1.000-1.030) Urine Protein (Negative) Urine Glucose (UA) (Negative) Urine Ketones (Negative) Urine Blood (Negative) Urine Nitrite (Negative) Urine Bilirubin (Negative) Urine Urobilinogen (Negative) Ur Leukocyte Esterase (Negative) COVID-19 Eval Order SARS-CoV-2 (PCR) (Negative) Administered Medications Insulin Human Regular 250 (units/ Sodium Chloride) 250 mls @ 6.4 mls/hr IV .Q24H GALA; Protocol Stop: 11/22/20 13:59 Last Titration: 10/23/20 20:47 Dose: 6.4 units/hr, 6.4 mls/hr Documented by: [id number] Cosigned by: [id number] Titration: 10/23/20 19:40 Dose: 4.6 units/hr, 4.6 mls/hr Documented by: [id number] Cosigned by: [id number] Titration: 10/23/20 18:54 Dose: 3.8 units/hr, 3.8 mls/hr Documented by: [id number] Cosigned by: [id number] Titration: 10/23/20 18:31 Dose: 3.8 units/hr, 3.8 mls/hr Documented by: [id number] Cosigned by: [id number] Titration: 10/23/20 16:22 Dose: 4.8 units/hr, 4.8 mls/hr Documented by: [id number] Cosigned by: [id number] Admin: 10/23/20 14:27 Dose: 6 units/hr, 6 mls/hr Documented by: [id number] Cosigned by: [id number] Potassium Chloride/Dextrose/Sod Cl (D5w And 1/2nss + 20meq Kcl) 20 meq in 1,000 mls @ 250 mls/hr IV .Q4H GALA Stop: 11/22/20 19:29 Last Admin: 10/23/20 19:50 Dose: 250 mls/hr Documented by: [id number] Insulin Aspart (Insulin Aspart 100 Units/Ml 3 Ml Pen) 0 units SC ACHS GALA Stop: 11/22/20 16:29 Last Admin: 10/23/20 20:49 Dose: Not Given Documented by: [id number] Admin: 10/23/20 20:10 Dose: 14 units Documented by: [id number] Cosigned by: [id number] Discontinued Medications Diphenhydramine HCl (Diphenhydramine 50 Mg/Ml Vial) 25 mg IV NOW STA Stop: 10/23/20 13:34 Last Admin: 10/23/20 13:48 Dose: 25 mg Documented by: [id number] Sodium Chloride (Nss 1000ml) 2,000 mls @ 999 mls/hr IV .Q2H1M ONE Stop: 10/23/20 14:14 Last Infusion: 10/23/20 14:26 Dose: 0 mls/hr Documented by: [id number] Admin: 10/23/20 12:31 Dose: 999 mls/hr Documented by: [id number] Acetaminophen (Ofirmev) 1,000 mg in 100 mls @ 400 mls/hr IV NOW STA Stop: 10/23/20 12:28 Last Infusion: 10/23/20 13:29 Dose: 0 mls/hr Documented by: [id number] Admin: 10/23/20 12:31 Dose: 400 mls/hr Documented by: [id number] Famotidine (Pepcid 20mg Iv Push) 20 mg in 5 mls @ 2.5 mls/min IV NOW STA Stop: 10/23/20 12:15 Last Admin: 10/23/20 12:31 Dose: 2.5 mls/min Documented by: [id number] Potassium Chloride/Sodium Chloride (1/2 Nss + 20meq Kcl 1000ml) 20 meq in 1,000 mls @ 250 mls/hr IV .Q4H GALA Stop: 11/22/20 13:59 Last Infusion: 10/23/20 19:48 Dose: 0 mls/hr Documented by: [id number] Admin: 10/23/20 19:03 Dose: 250 mls/hr Documented by: [id number] Infusion: 10/23/20 18:27 Dose: 250 mls/hr Documented by: [id number] Admin: 10/23/20 14:27 Dose: 250 mls/hr Documented by: [id number] Parenteral Electrolytes (Normosol-R) 1,000 mls @ 150 mls/hr IV .Q6H40M GALA; Protocol Stop: 11/22/20 18:17 Last Admin: 10/23/20 19:48 Dose: Not Given Documented by: [id number] Metoclopramide HCl (Metoclopramide Hcl Inj 5 Mg/Ml 2 Ml Vial) 10 mg IV NOW STA Stop: 10/23/20 13:34 Last Admin: 10/23/20 13:48 Dose: 10 mg Documented by: [id number] Miscellaneous (Stat Iv Infusion Titration Per Protocol) 1 ea N/A NOW STA Stop: 10/23/20 13:55 Last Admin: 10/23/20 14:31 Dose: Not Given Documented by: [id number] Munir (Stat Iv Infusion Titration Per Protocol) 1 ea N/A NOW STA Stop: 10/23/20 13:55 Last Admin: 10/23/20 14:31 Dose: Not Given Documented by: [id number] Munir (Stat Iv Infusion Titration Per Protocol) 1 ea N/A NOW STA Stop: 10/23/20 14:40 Last Admin: 10/23/20 14:40 Dose: 1 ea Documented by: [id number] Munir (Stat Iv Infusion Titration Per Protocol) 1 ea N/A NOW STA Stop: 10/23/20 14:40 Last Admin: 10/23/20 14:40 Dose: 1 ea Documented by: [id number] Munir (Pending 1/2nss+20meq Kcl Ivf) 1 ea N/A Q2H GALA Stop: 11/22/20 18:59 Last Admin: 10/23/20 19:27 Dose: Not Given Documented by: [id number] Munir (Dka Goal Range 150-250 Mg/Dl) 1 ea N/A ONE ONE Stop: 10/23/20 18:19 Last Admin: 10/23/20 19:28 Dose: 1 ea Documented by: [id number] Ondansetron HCl (Ondansetron Inj 2 Mg/Ml 2 Ml Vial) 4 mg IV NOW STA Stop: 10/23/20 12:15 Last Admin: 10/23/20 12:31 Dose: 4 mg Documented by: [id number] Discharge Plan Visit Data Chief Complaint: Illness Stated Complaint: MIGRAINE, VOMITING, HIGH BP ED Provider: Dakota Wright Discharge Problem: Diabetic ketoacidosis associated with type 1 diabetes mellitus, Nausea & vomiting, Migraine, Acute dehydration Patient Disposition: Admitted As Inpatient Discharge Instructions Interventions: ED Discharge Assessment Last Done: 10/23/20 15:51 Discharge Problem: Diabetic ketoacidosis associated with type 1 diabetes mellitus Qualifiers: Diabetes mellitus complication detail: without coma Qualified Code(s): E10.10 - Type 1 diabetes mellitus with ketoacidosis without coma Nausea & vomiting Qualifiers: Vomiting type: unspecified Vomiting Intractability: non-intractable Qualified Code(s): R11.2 - Nausea with vomiting, unspecified Migraine Qualifiers: Migraine type: unspecified Status migrainosus presence: without status migrainosus Intractability: not intractable Qualified Code(s): G43.909 - Horace christiano, unspecified, not intractable, without status migrainosus
[2020-10-23] MEDS ORDERED: INSULIN REGULAR 250 UNITS in SODIUM CHLORIDE 0.9% 247.5 ML IV SCH (18:18)
[2020-10-23] MEDS ORDERED: GLUCAGON 1 MG SQ PRN (18:18)
[2020-10-23] MEDS ORDERED: DKA GOAL RANGE 150-250 mg/dl ONE (18:18)
[2020-10-23] MEDS ORDERED: NORMOSOL-R 1,000 ML IV SCH (18:18)
[2020-10-23] MEDS ORDERED: ALUMINUM/MAGNESIUM SUSP 30 ML UDC PO PRN (18:18)
[2020-10-23] MEDS ORDERED: INSULIN ASPART 100 UNITS/ML 3 ML PEN SC SCH (18:18)
[2020-10-23] MEDS ORDERED: ONDANSETRON INJ 2 MG/ML 2 ML VIAL IV PRN (18:18)
[2020-10-23] MEDS ORDERED: ACETAMINOPHEN 325 MG TAB PO PRN (18:18)
[2020-10-23] MEDS ORDERED: PENDING 1/2NSS+20mEq KCL IVF SCH (19:00)
[2020-10-23] MEDS ORDERED: PENDING D5 1/2NS+20mEq KCL IVF SCH (19:30)
[2020-10-23 19:44] LABS: BUN Creatinine Ratio 15.5 (10-20); Calcium 7.8 mg/dl (8.5-10.1); Creatinine Clr Calc Pharmacy 99.6 ml/min; Est GFR (African American) 131.7 ml/min; Est GFR (Non-African American) 113.7 ml/min; Magnesium 1.9 mg/dl (1.8-2.4); Potassium 4.6 mmol/L (3.5-5.1)
[2020-10-23] MEDS: D5W AND 1/2NSS + 20MEQ KCL 20 MEQ/1,000 ML BAG IV SCH ×2 (19:50→23:37)
[2020-10-23] MEDS: INSULIN ASPART 100 UNITS/ML 3 ML PEN SC SCH ×2 (20:10→20:49)
[2020-10-23 20:19] LABS: Phosphorus 2.8 mg/dl (2.5-4.9)
[2020-10-23 23:08] LABS: Calcium 7.8 mg/dl (8.5-10.1); Creatinine Clr Calc Pharmacy 81.7 ml/min; Est GFR (African American) 103.7 ml/min; Est GFR (Non-African American) 89.4 ml/min; Magnesium 1.7 mg/dl (1.8-2.4); Phosphorus 1.6 mg/dl (2.5-4.9)
[2020-10-24 03:08] LABS: BUN Creatinine Ratio 8.5 (10-20); Calcium 7.8 mg/dl (8.5-10.1); Creatinine Clr Calc Pharmacy 111.9 ml/min; Est GFR (Non-African American) 122.5 ml/min; Magnesium 1.8 mg/dl (1.8-2.4); Potassium 4.1 mmol/L (3.5-5.1)
[2020-10-24 03:24] LABS: Phosphorus 1.4 mg/dl (2.5-4.9)
[2020-10-24] MEDS: D5W AND 1/2NSS + 20MEQ KCL 20 MEQ/1,000 ML BAG IV SCH ×4 (03:30→15:45)
[2020-10-24] MEDS ORDERED: SODIUM PHOSPHATE 3 MMOL/1 ML INFUSION IV STA (03:30)
[2020-10-24] MEDS ORDERED: POTASSIUM PHOSPHATE 40 MMOL in SODIUM CHLORIDE 0.9% 1000ML 1,000 ML IV ONE (04:15)
[2020-10-24] MEDS: MAGNESIUM SULFATE / D5W 1 GM/100 ML BAG IV SCH ×2 (04:42→06:34)
[2020-10-24 07:27] LABS: Calcium 7.6 mg/dl (8.5-10.1); Creatinine Clr Calc Pharmacy 121.7 ml/min; Est GFR (African American) 146.6 ml/min; Est GFR (Non-African American) 126.5 ml/min; Magnesium 1.9 mg/dl (1.8-2.4); Potassium 4.4 mmol/L (3.5-5.1)
[2020-10-24 07:30] LABS: Phosphorus 2.3 mg/dl (2.5-4.9)
[2020-10-24 07:31] LABS: Cholesterol 129 mg/dl (0-200)
[2020-10-24 07:34] LABS: Chol HDL Ratio 4; HDL Cholesterol 36 mg/dl; LDL Cholesterol Calculated 72 mg/dl; Triglycerides 103 mg/dl (0-150); VLDL Cholesterol 21 mg/dl
[2020-10-24] MEDS: VENLAFAXINE HCL XR 75 MG CAPXR PO SCH (07:41)
[2020-10-24 07:54] LABS: Basophils # (auto) 0.01 K/uL (0-0.2); Basophils % (auto) 0.2 %; Eosinophils # (auto) 0.09 K/uL (0-0.5); Eosinophils % (auto) 1.5 %; Hematocrit (blood only) 37.8 % (37-47); Hemoglobin 13.2 g/dL (12.0-16.0); Immature Granulocytes # (auto) 0.01 K/uL (0.00-0.02); Immature Granulocytes % (auto) 0.2 %; Lymphocytes # (auto) 1.56 K/uL (1.2-3.4); Lymphocytes % (auto) 26.6 %; Mean Corpuscular Hemoglobin 30.1 pg (25-34); Mean Corpuscular Volume 86.1 fL (80-100); Mean Platelet Volume 10.8 fL (7.4-10.4); Monocytes # (auto) 0.39 K/uL (0.11-0.59); Monocytes % (auto) 6.6 %; Neutrophils # (auto) 3.81 K/uL (1.4-6.5); Neutrophils % (auto) 64.9 %; Platelet Count 195 K/uL (130-400); RDW Coefficient of Variation 11.6 % (11.5-14.5); Red Blood Count 4.39 M/uL (4.2-5.4); White Blood Count 5.87 K/uL (4.8-10.8)
[2020-10-24 07:55] LABS: Mean Corpuscular Hgb Conc 34.9 g/dL (32-36)
[2020-10-24] MEDS: VENLAFAXINE HCL XR 37.5 MG CAPXR PO SCH (08:32)
[2020-10-24] MEDS: INSULIN ASPART 100 UNITS/ML 3 ML PEN SC SCH ×3 (08:37→16:40)
[2020-10-24 08:38] LABS: Estimated Average Glucose 295 mg/dl; Hemoglobin A1C 11.9 % (4.5-5.6)
[2020-10-24 10:53] LABS: BUN Creatinine Ratio 2.7 (10-20); Calcium 7.8 mg/dl (8.5-10.1); Creatinine Clr Calc Pharmacy 101.1 ml/min; Est GFR (African American) 136.2 ml/min; Est GFR (Non-African American) 117.6 ml/min; Magnesium 2.1 mg/dl (1.8-2.4); Potassium 4.4 mmol/L (3.5-5.1)
[2020-10-24 10:56] LABS: Phosphorus 2.1 mg/dl (2.5-4.9)
[2020-10-24 14:49] LABS: BUN Creatinine Ratio 3.2 (10-20); Creatinine Clr Calc Pharmacy 119.7 ml/min; Est GFR (African American) 145.8 ml/min; Est GFR (Non-African American) 125.8 ml/min; Magnesium 1.8 mg/dl (1.8-2.4); Potassium 4.2 mmol/L (3.5-5.1)
[2020-10-24 14:50] LABS: Phosphorus 1.7 mg/dl (2.5-4.9)
[2020-10-24] MEDS: INSULIN REGULAR 250 UNITS in SODIUM CHLORIDE 0.9% 247.5 ML IV SCH (15:06)
--- NOTE | 2020-10-24 16:58 | Hospitalist Progress Note ---
Date of Service October 24, 2020 Assessment & Plan (1) Diabetic ketoacidosis associated with type 1 diabetes mellitus: Plan: Anion gap closed Acidosis also resolved on most recent labs Insulin drip stopped - average 3.2 units/hr in last 12 hours (on D5W 250ml/hr) Patient wishes to be placed back on her insulin pump - usual basal 1.1 -> 1.8 (see tobacco prevention health educator note for full breakdown), total 36.6 basal units/day, probably under bolus as only 18% bolus HbA1C 11.9 - has follow up with endocrinology in October Will increase her basal rate to 2 units/hr (total 48 units/day), patient will continue on her usual correction and carb ratio ICR: 8 ISF: 40, Target 80-120 Additional Novolog and BSGs to be taken at midnight and 4am for correction and monitor for hypoglycemia (2) Nausea & vomiting: (3) Depression with anxiety: Admission and Anticipated Discharge Date Admission Date: October 23, 2020 Subjective Patient feeling very hungry. Much improved since admission. No nausea, vomiting, abdominal pain or diarrhea. Reports having a kink in her tubing for her insulin pump which she set up on Friday night therefore didn't have any insulin overnight causing her DKA. No suspicion for infection. Reports recently glucose values worse though from increased stress. Follows with [facility] endocrinology. Usually A1Cs in 9s. Review of Systems Review of Systems: All systems reviewed & are unremarkable except as noted in HPI & below Physical Exam Constitutional: WD/WN, vitals as above Respiratory: normal respiratory effort, lungs clear to auscultation Cardiovascular: RRR, no murmur, no edema Gastrointestinal (Abdomen): normal bowel sounds, soft, nontender, no hepatosplenomegaly Musculoskeletal: no cyanosis or clubbing, extremities motor strength 5/5 Skin: no rashes, warm and dry Neurologic: moves all extremities and awake; not confused Results & Data Results & Data ([facility]) Vital Signs (Past 12 Hours) Vital Signs Temp Pulse Pulse Resp BP Pulse Ox 10/24/20 16:00 87 10/24/20 15:39 37.0 C 92 H 19 97/58 L 98 10/24/20 08:51 90 10/24/20 07:48 37.2 C 95 H 19 105/73 98 PG Care Time/CCT Total # of Minutes Spent Total Time Spent with Patient: Total time spent is greater than 50% in coordination of care (as documented) at patient's floor/unit and/or counseling patient: Coding Level of Care Code 32567 Subseq Hosp Care Lvl 3 Diagnoses Diabetic ketoacidosis associated with type 1 diabetes mellitus E10.10 Diabetes mellitus complication detail: without coma Nausea & vomiting R11.2 Vomiting Intractability: non-intractable Vomiting type: unspecified Depression with anxiety F41.8 (1) Diabetic ketoacidosis associated with type 1 diabetes mellitus Diabetes mellitus complication detail: without coma Qualified Code(s): E10.10 - Type 1 diabetes mellitus with ketoacidosis without coma (2) Nausea & vomiting Vomiting Intractability: non-intractable Vomiting type: unspecified Qualified Code(s): R11.2 - Nausea with vomiting, unspecified
[2020-10-24] MEDS: SODIUM CHLOR 0.45% + 20MEQ KCL 20 MEQ/1,000 ML BAG IV SCH (17:29)
[2020-10-25] MEDS: SODIUM CHLOR 0.45% + 20MEQ KCL 20 MEQ/1,000 ML BAG IV SCH ×2 (00:44→10:09)
[2020-10-25] MEDS: INSULIN ASPART 100 UNITS/ML 3 ML PEN SC SCH ×2 (00:59→04:20)
[2020-10-25] MEDS: VENLAFAXINE HCL XR 37.5 MG CAPXR PO SCH (08:09)
[2020-10-25] MEDS: VENLAFAXINE HCL XR 75 MG CAPXR PO SCH (08:09)
[2020-10-25 09:43] LABS: BUN Creatinine Ratio 2.1 (10-20); Calcium 8.9 mg/dl (8.5-10.1); Creatinine Clr Calc Pharmacy 101.1 ml/min; Est GFR (African American) 136.2 ml/min; Est GFR (Non-African American) 117.6 ml/min; Magnesium 1.9 mg/dl (1.8-2.4); Potassium 4.3 mmol/L (3.5-5.1)
[2020-10-25 09:50] LABS: Phosphorus 2.2 mg/dl (2.5-4.9)
--- NOTE | 2020-10-25 11:54 | Discharge Summary ---
Date of Service October 25, 2020 Admission HPI Per Admitting Provider This is a 25-year-old female with past medical history of type 1 diabetes mellitus on insulin pump, migraine and that presents today complaining nausea vomiting. Patient is somewhat uncomfortable secondary to headache but she does answer questions appropriately. Patient tells me she is feeling fine yesterday but approximately 830 this morning she started to have some nausea. This became vomiting and some gener alized abdominal pain diarrhea 9 this morning. She is on insulin pump and changed the site yesterday evening. The pump seem to be functioning normally she does not feel that there were any issues with the equipment. She recognizes symptoms of DKA and came to the emergency room. She was found to have a blood sugar over 400 with an anion gap of 17. Patient is now being admitted for treatment of diabetic ketoacidosis. Principal Diagnosis Diabetic ketoacidosis due to malfunctioning insulin pump Discharge Exam Constitutional WD/WN, vitals as above Respiratory normal respiratory effort, lungs clear to auscultation Cardiovascular RRR, no murmur, no edema Gastrointestinal (Abdomen) normal bowel sounds, soft, nontender, no hepatosplenomegaly Musculoskeletal no cyanosis or clubbing, extremities motor strength 5/5 Skin no rashes, warm and dry Neurologic moves all extremities and awake; not confused Discharge Data Allergies Allergy/AdvReac Type Severity Reaction Status Date / Time No Known Allergies Allergy Verified 10/23/20 12:18 Consultations 10/23/20 13:51 ED Decision to Admit Stat Diabetes Follow up Diabetes Follow-up Needed for HgbA1c >9% Hospital Course (1) Diabetic ketoacidosis associated with type 1 diabetes mellitus: (2) Nausea & vomiting: (3) Depression with anxiety: Wendy Light is a 25 year old female admitted to [facility] from October 23 - October 25, 2020 due to diabetic ketoacidosis. This was treated with IV insulin drip and fluids. You were transitioned to your insulin pump and prior settings appear appropriate based on glucose levels on day of discharge. However suspect you are under dosing bolus doses with your current eating habits as boluses make up only 18% of your total insulin (this should usually be closer to 50%). This DKA episode was due to a kink in your insulin pump catheter. Recommend changing your insulin pump in the morning in the future as you will be more alert if it is malfunctioning. Please follow up with your fine dining server as previously planned for consideration of Dexcom. Total Time Total Time Spent Total Time Spent (In Minutes): 35 Discharge Plan Discharge Items Patient Disposition: Home - Self-Care Reason For Visit: MIGRAINE, VOMITING, HIGH BP Discharge Diagnosis: Diabetic ketoacidosis due to malfunctioning insulin pump Activity: Resume your previous activity Non-emergency contact: Specialist Call non-emergency contact if: you have any medication questions and your symptoms worsen Follow-up/Referrals: Nito Velazco III, MD [Primary Care Provider] - (Dr. Velazco is unavailable.) Sushila Ga CRNP [Nurse Practitioner] - 10/31/20 3:00 pm (Dr. Velazco is unavailable. Please follow up with NYLA Das on Friday10/31/20 at 3:00 pm. Please arrive to the office at 2:45 pm for your appointment. If you are unable to keep this appointment, please call the office to reschedule at [phone].) Diet: Carb Count or DM1 Addtl Attending Provider Instructions: You were admitted to [facility] from October 23 - October 25, 2020 due to diabetic ketoacidosis. This was treated with IV insulin drip and fluids. You were transitioned to your insulin pump and prior settings appear appropriate based on glucose levels on day of discharge. However suspect you are under dosing bolus doses with your current eating habits as boluses make up only 18% of your total insulin (this should usually be closer to 50%). This DKA episode was due to a kink in your insulin pump catheter. Recommend changing your insulin pump in the morning in the future as you will be more alert if it is malfunctioning. Please follow up with your fine dining server as previously planned for consideration of Dexcom. Kind regards, Dr Kulwant Hall Pending Studies at Discharge: No Stand-Alone Forms: My [facility] [employer], Smoking Cessation Medications and DC Order Prescriptions: Continued insulin lispro [Humalog U-100 Insulin] 100 unit/mL solution 100 unit continuous subcutaneous infusion DAILY 90 Days Qty: 90 RF: 3 glucagon HCl 1 mg recon soln 1 mg subcut UD PRN (Reason: hypoglycemia) Qty: 1 RF: 0 venlafaxine 37.5 mg capsule,extended release 24hr 37.5 mg PO DAILY RF: 0 venlafaxine 75 mg capsule,extended release 24hr 75 mg PO DAILY RF: 0 norethindrone-e.estradiol-iron [Microgestin FE 03/15 (28)] 1 mg-20 mcg (21)/75 mg (7) Tablet 1 tab PO DAILY RF: 0 Discharge Orders: Discharge Order (Routine); Ordered 10/25/20 Ordered By: Kulwant Hall Admission Data Admit Date/Time: 10/23/20 14:39 Attending Provider: Kulwant Hall Admit Provider: Eris Guerrero Primary Care Provider: Nito Velazco III Other Providers: Eris Guerrero Other Interventions: Discharge Summary Assessment (RN) Last Done: 10/25/20 11:56 Coding Diagnoses Diabetic ketoacidosis associated with type 1 diabetes mellitus E10.10 Diabetes mellitus complication detail: without coma Nausea & vomiting R11.2 Vomiting Intractability: non-intractable Vomiting type: unspecified Depression with anxiety F41.8
== END 2020-10-25 12:42 | disposition home or self-care (01) | DRG 919 ==
LOC: ED 10:54 → 2S 14:39 → SUATTDRO 14:39 → 2S 15:51
DX: Z82.49 Family history of ischemic heart disease and other diseases of the circulatory system; F17.210 Nicotine dependence, cigarettes, uncomplicated; E10.10 Type 1 diabetes mellitus with ketoacidosis without coma; F41.8 Other specified anxiety disorders; Z79.4 Long term (current) use of insulin; Y84.8 Other medical procedures as the cause of abnormal reaction of the patient, or of later complication, without mention of misadventure at the time of the procedure; T85.694A Other mechanical complication of insulin pump, initial encounter; Z79.3 Long term (current) use of hormonal contraceptives; Z96.41 Presence of insulin pump (external) (internal); Z79.899 Other long term (current) drug therapy

== ENCOUNTER 2022-02-20 15:20 | Inpatient (IN) ==
[2022-02-20] MEDS ORDERED: ONDANSETRON INJ 2 MG/ML 2 ML VIAL IV STA ×2 (15:45→18:36)
[2022-02-20] MEDS ORDERED: SODIUM CHLORIDE 0.9% 1000ML 1,000 ML IV SCH (15:47)
[2022-02-20 16:20] LABS: Basophils # (auto) 0.02 K/uL (0-0.2); Basophils % (auto) 0.3 %; Hematocrit (blood only) 45.8 % (34.1-44.9); Hemoglobin 15.2 g/dl (12.0-16.0); Immature Granulocytes # (auto) 0.02 K/uL (0.00-0.02); Immature Granulocytes % (auto) 0.3 %; Mean Corpuscular Hemoglobin 30.6 pg (25.0-34.0); Mean Corpuscular Hgb Conc 33.2 g/dL (32.0-36.0); Mean Corpuscular Volume 92.2 fL (80.0-100.0); Mean Platelet Volume 10.3 fL (9.4-12.3); Monocytes # (auto) 0.58 K/uL (0.24-0.82); Monocytes % (auto) 9.1 %; Neutrophils # (auto) 5.07 K/uL (1.4-6.5); Neutrophils % (auto) 79.3 %; Platelet Count 201 K/uL (130-400); RDW Coefficient of Variation 11.4 % (11.5-14.5); RDW Standard Deviation 38.5 fL (36.4-46.3); Red Blood Count 4.97 M/uL (3.93-5.22); White Blood Count 6.39 K/ul (4.8-10.8)
[2022-02-20 16:31] LABS: Appearance Urine Clear (Clear); Bacteria Urine Automated 1+ (Negative); Bilirubin Urine Negative (Negative); Blood Urine Negative (Negative); Color Urine Yellow; Epithelial Cell Urine Auto >30 /lpf (0-5); Glucose Urine UA 3+ (Negative); Ketones Urine 4+ (Negative); Leukocyte Esterase Urine Trace (Negative); Nitrite Urine Negative (Negative); Protein Urine 1+ (Negative); Specific Gravity Urine 1.032 (1.000-1.030); Urobilinogen Urine Negative (Negative); pH Urine 5.5 (4.5-7.5)
[2022-02-20 16:40] LABS: Albumin Globulin Ratio 1.3 (0.9-2); Albumin Level 4.3 gm/dl (3.4-5.0); BUN Creatinine Ratio 12.2 (10-20); Bilirubin,Total 0.5 mg/dl (0.2-1.0); Calcium 8.7 mg/dl (8.5-10.1); Creatinine Clr Calc Pharmacy 89.9 ml/min; Est GFR (African American) 113.7 ml/min; Est GFR (Non-African American) 98.1 ml/min; Globulin 3.3 gm/dl (2.5-4.0); Potassium 4.3 mmol/L (3.5-5.1); Total Protein 7.6 gm/dl (6.0-8.3)
[2022-02-20 17:02] LABS: Influenza B virus by PCR Negative (Neg); RSV by PCR Negative (Neg); SARS CoV2 RNA(COVID-19) Ceph NEGATIVE (Negative)
[2022-02-20 17:22] LABS: Influenza A virus by PCR Positive (Neg)
[2022-02-20] MEDS ORDERED: SODIUM CHLORIDE 0.9% 1000ML 1,000 ML IV ONE ×2 (18:28→20:53)
--- NOTE | 2022-02-20 18:36 | Emergency Department Note ---
Impression & Plan Metabolic acidosis ADMIT ED Provider Note HPI: The patient is a 26-year-old female with insulin-dependent diabetes, currently on insulin pump, presents emergency department with 2 days of ongoing fever, as well as associated cough, nausea and vomiting. On arrival here to the ED the patient is mildly tachycardic but otherwise afebrile, she is saturating well on room air on arrival, denies any abdominal pain, denies any shortness of breath or chest pain. ROS: -Pulmonary: Cough -GI: Nausea *10 point review systems was conducted and is otherwise negative unless stated above *Outpatient medications and allergy history reviewed PE: General: Alert HEENT: Normocephalic, trachea midline Eyes: Extraocular eye movement is intact, no scleral erythema Pulmonary: Clear to auscultation bilaterally, no wheezing Cardio: Regular rate and rhythm GI: Abdomen is soft, nontender : No suprapubic tenderness MSK: No evidence of trauma or malformation of the extremities, no edema Skin: No evidence of rash Neuro: Alert, no focal deficits Psychiatric: Cooperative vehicle monitor technician: - An order was placed for continuous cardiac monitoring - Patient was noted to be in sinus rhythm with a rate of 95 Interventions provided in ED: -IV fluid bolus, zofran Medical Decision Making: Patient presented to the emergency department with flulike symptoms for the past several days. On arrival here to the ED she is tachycardic but otherwise hemodynamically stable. Patient does have a history of insulin-dependent diabetes and has an insulin pump, her initial lab work is consistent with a mild diabetic ketoacidosis, she has 4+ ketones in her urine, serum bicarbonate level is reduced at 18, anion gap of 15, patient was started on IV fluids, given Zofran for nausea. Repeat BMP was obtained that shows closure of gap with IV fluid resuscitation however her serum bicarbonate level is reduced even further to 15. Influenza A testing is positive. Patient does not have a significant leukocytosis, I have low suspicion for bacterial infection. testing is negative, urinalysis does not show any clear evidence of UTI. Chest x-ray does not show any obvious evidence of pneumonia per my interpretation. Patient was ordered a total of 3 L of IV fluid for resuscitation for metabolic acidosis with ketonuria and initial presenting lab work consistent with DKA. Given that her serum bicarbonate level is still reduced, despite her gap closure I feel she would benefit from admission, she was started on Tamiflu, case was discussed with the on-call hospitalist for [facility], Dr. Coronado, and the patient was admitted in stable condition for further care. Diagnosis: 1. Diabetic ketoacidosis, mild 2. Ketonuria 3. Nausea and vomiting 4. Influenza A infection Disposition: Admission Sergey Farrar DO Emergency Medicine Past Med/Surg History Medical History Chlamydia infection Depression with anxiety Diabetes mellitus type 1 Genital herpes simplex History of pyelonephritis Varicella Vitamin D deficiency Surgical History No significant past surgical history Family History Unknown Type 1 diabetes mellitus Hypertension Thyroid disorder Grandmother Cervical cancer Maternal Grandmother Grandfather Type 2 diabetes mellitus Maternal Other Cerebral aneurysm Denies family history of Ovarian cancer Prostate cancer Myocardial infarction Breast cancer Colorectal cancer Uterine cancer Social History (Updated 10/15/21 @ 09:04 by Nelida Bennett LPN) Smoking Status: Current every day smoker Tobacco Type: E-cigarettes / Vaping Cigarettes Per Day: 5; Second Hand Exposure: No; Do You Dip or Chew Tobacco: No; Tobacco Cessation Education Requested by Patient: No Hx Alcohol Use: Yes Alcohol type: wine Hx Substance Use: No Preferred Language: Maori Communication Ability: Effective Visual Impairment: No Limitations Hearing Ability: Normal Mechanical Unit Repairer Required: No Beliefs That Will Affect Care: None marital status: Current Living Situation: Family Current Living Situation Comment: Lives with Grandparents. current occupational status: employed current occupation: [employer] How many Children do You have: 1 Other Information That Helps Us Care for You: No Feels Safe at Home: Yes Safety Concerns: Feels Safe At This Time Dental Care, Regularly: No Physical Activity Frequency: Does not Exercise Assistive Devices: Contacts and Glasses Allergies Allergies Allergy/AdvReac Type Severity Reaction Status Date / Time nitrofurantoin AdvReac Intermediate Nausea Verified 02/20/22 21:47 [From Macrobid] Home Meds Home Medications Medication Instructions Recorded Confirmed glucagon HCl 1 mg/mL solution for 1 mg subcut UD PRN hypoglycemia #1 10/02/18 02/20/22 injection ea insulin lispro 100 unit/mL 100 unit continuous subcutaneous 02/20/22 02/20/22 subcutaneous solution (Humalog infusion CONTINOUS U-100 Insulin) norethindrone 1.5 mg-ethinyl 1 tab PO DAILY 02/20/22 02/20/22 estradiol 30 mcg(21)/iron 75 mg(7) tablet (Marcella Fe 1.5/30 ()) Previous Rx's Medication Instructions Recorded bupropion HCl 300 mg 24 hr tablet, 300 mg PO QAM #30 tabs 02/05/22 extended release (Wellbutrin XL) Results & Data (ED) Vital Signs Vital Signs - 24 hr 02/20/22 15:43 Temperature 36.7 C Temperature Source Temporal Artery Scan Pulse Rate 114 H Respiratory Rate 16 Respiratory Effort / Characteristics Non-Labored Spontaneous Respiratory Depth Normal Respiratory Pattern Regular Blood Pressure 126/70 Blood Pressure Mean 88 Blood Pressure Position Sitting Pulse Oximetry 98 Oxygen Delivery Method Room Air Sepsis Recent Fever Within 48 Hours No Sepsis New/Unexplained Change in Mental Status No Sepsis Action Taken by Nursing No Action Required Laboratory Data Result diagrams: 02/20/22 16:00 02/20/22 23:33 Lab Results 02/20/22 02/20/22 02/20/22 Range/Units 16:00 16:00 16:00 WBC 6.39 (4.8-10.8) K/ul RBC 4.97 (3.93-5.22) M/uL Hgb 15.2 (12.0-16.0) g/dl Hct 45.8 H (34.1-44.9) % MCV 92.2 (80.0-100.0) fL MCH 30.6 (25.0-34.0) pg MCHC 33.2 (32.0-36.0) g/dL RDW Std Deviation 38.5 (36.4-46.3) fL RDW Coeff of Esther 11.4 L (11.5-14.5) % Plt Count 201 (130-400) K/uL MPV 10.3 (9.4-12.3) fL Immature Gran % (Auto) 0.3 % Neut % (Auto) 79.3 % Lymph % (Auto) 11.0 % [place] % (Auto) 9.1 % Eos % (Auto) 0.0 % Baso % (Auto) 0.3 % Neut # (Auto) 5.07 (1.4-6.5) K/uL Lymph # (Auto) 0.70 L (1.2-3.4) K/uL [place] # (Auto) 0.58 (0.24-0.82) K/uL Eos # (Auto) 0.00 (0-0.50) K/uL Baso # (Auto) 0.02 (0-0.2) K/uL Immature Gran # (Auto) 0.02 (0.00-0.02) K/uL Sodium 132 L (136-145) mmol/L Potassium 4.3 (3.5-5.1) mmol/L Chloride 99 (98-107) mmol/L Carbon Dioxide 18 L (21-32) mmol/L Anion Gap 15 H (3-11) BUN 10 (6-23) mg/dl Creatinine 0.82 (0.6-1.2) mg/dl Est Cr Clr Drug Dosing 89.9 ml/min Est GFR ( Amer) 113.7 ml/min Est GFR (Non-Af Amer) 98.1 ml/min BUN/Creatinine Ratio 12.2 (10-20) Glucose 273 H (70-99(Fasting)) mg/dl Calcium 8.7 (8.5-10.1) mg/dl Total Bilirubin 0.5 (0.2-1.0) mg/dl AST 33 (13-39) U/L ALT 37 (7-52) U/L Alkaline Phosphatase 94 (34-104) U/L Total Protein 7.6 (6.0-8.3) gm/dl Albumin 4.3 (3.4-5.0) gm/dl Globulin 3.3 (2.5-4.0) gm/dl Albumin/Globulin Ratio 1.3 (0.9-2) Urine Color Yellow Urine Appearance Clear (Clear) Urine pH 5.5 (4.5-7.5) Ur Specific [place] 1.032 H (1.000-1.030) Urine Protein 1+ H (Negative) Urine Glucose (UA) 3+ H (Negative) Urine Ketones 4+ H (Negative) Urine Blood Negative (Negative) Urine Nitrite Negative (Negative) Urine Bilirubin Negative (Negative) Urine Urobilinogen Negative (Negative) Ur Leukocyte Esterase Trace H (Negative) Urine WBC (Auto) 5-10 H (0-5) /hpf Urine RBC (Auto) 5-10 H (0-4) /hpf U Hyaline Cast (Auto) 1-5 (0-5) /lpf U Epithel Cells (Auto) >30 H (0-5) /lpf Urine Bacteria (Auto) 1+ H (Negative) POC Ur Test (NEG) SARS-CoV-2 (PCR) (Negative) Influenza Type A (PCR) (Neg) Influenza Type B (PCR) (Neg) RSV (RT-PCR) (Neg) 02/20/22 02/20/22 02/20/22 Range/Units 16:00 16:00 20:10 WBC (4.8-10.8) K/ul RBC (3.93-5.22) M/uL Hgb (12.0-16.0) g/dl Hct (34.1-44.9) % MCV (80.0-100.0) fL MCH (25.0-34.0) pg MCHC (32.0-36.0) g/dL RDW Std Deviation (36.4-46.3) fL RDW Coeff of Esther (11.5-14.5) % Plt Count (130-400) K/uL MPV (9.4-12.3) fL Immature Gran % (Auto) % Neut % (Auto) % Lymph % (Auto) % [place] % (Auto) % Eos % (Auto) % Baso % (Auto) % Neut # (Auto) (1.4-6.5) K/uL Lymph # (Auto) (1.2-3.4) K/uL [place] # (Auto) (0.24-0.82) K/uL Eos # (Auto) (0-0.50) K/uL Baso # (Auto) (0-0.2) K/uL Immature Gran # (Auto) (0.00-0.02) K/uL Sodium 132 L (136-145) mmol/L Potassium 4.5 (3.5-5.1) mmol/L Chloride 106 (98-107) mmol/L Carbon Dioxide 15 L (21-32) mmol/L Anion Gap 11 (3-11) BUN 10 (6-23) mg/dl Creatinine 0.66 (0.6-1.2) mg/dl Est Cr Clr Drug Dosing 111.7 ml/min Est GFR ( Amer) 140.3 ml/min Est GFR (Non-Af Amer) 121.1 ml/min BUN/Creatinine Ratio 15.2 (10-20) Glucose 230 H (70-99(Fasting)) mg/dl Calcium 7.5 L (8.5-10.1) mg/dl Total Bilirubin (0.2-1.0) mg/dl AST (13-39) U/L ALT (7-52) U/L Alkaline Phosphatase (34-104) U/L Total Protein (6.0-8.3) gm/dl Albumin (3.4-5.0) gm/dl Globulin (2.5-4.0) gm/dl Albumin/Globulin Ratio (0.9-2) Urine Color Urine Appearance (Clear) Urine pH (4.5-7.5) Ur Specific [place]wood (1.000-1.030) Urine Protein (Negative) Urine Glucose (UA) (Negative) Urine Ketones (Negative) Urine Blood (Negative) Urine Nitrite (Negative) Urine Bilirubin (Negative) Urine Urobilinogen (Negative) Ur Leukocyte Esterase (Negative) Urine WBC (Auto) (0-5) /hpf Urine RBC (Auto) (0-4) /hpf U Hyaline Cast (Auto) (0-5) /lpf U Epithel Cells (Auto) (0-5) /lpf Urine Bacteria (Auto) (Negative) POC Ur Test NEG (NEG) SARS-CoV-2 (PCR) NEGATIVE (Negative) Influenza Type A (PCR) Positive A* (Neg) Influenza Type B (PCR) Negative (Neg) RSV (RT-PCR) Negative (Neg) Administered Medications Parenteral Electrolytes (Normosol-R) 1,000 mls @ 75 mls/hr IV .[id number] GALA Stop: 02/21/22 05:00 Last Admin: 02/21/22 00:04 Dose: 75 mls/hr Documented By: ZENY Ondansetron HCl (Ondansetron Inj 2 Mg/Ml 2 Ml Vial) 4 mg IV Q4H PRN PRN Reason: Nausea Stop: 03/22/22 23:52 Last Admin: 02/21/22 00:28 Dose: 4 mg Documented By: ZENY Discontinued Medications Sodium Chloride (Nss 1000ml) 1,000 mls @ 999 mls/hr IV .Q1H1M GALA Stop: 02/20/22 16:47 Last Infusion: 02/20/22 19:44 Dose: 0 mls/hr Documented By: Admin: 02/20/22 16:32 Dose: 999 mls/hr Documented By: ANGELA Sodium Chloride (Nss 1000ml) 1,000 mls @ 999 mls/hr IV .Q1H1M ONE Stop: 02/20/22 19:28 Last Infusion: 02/20/22 20:52 Dose: 0 mls/hr Documented By: Admin: 02/20/22 19:37 Dose: 999 mls/hr Documented By: MARCOS Sodium Chloride (Nss 1000ml) 1,000 mls @ 999 mls/hr IV .Q1H1M ONE Stop: 02/20/22 21:53 Last Infusion: 02/20/22 22:49 Dose: 0 mls/hr Documented By: Admin: 02/20/22 21:08 Dose: 999 mls/hr Documented By: BRENNAN Insulin Human Regular 250 (units/ Sodium Chloride) 250 mls @ 6.6 mls/hr IV .Q24H GALA; Protocol Stop: 03/22/22 20:59 Last Admin: 02/20/22 23:01 Dose: Not Given Documented By: CHAYO Co-signed By: SAURABH Ibuprofen (Ibuprofen 200 Mg Tab) 400 mg PO NOW STA Stop: 02/21/22 00:03 Last Admin: 02/21/22 00:26 Dose: 400 mg Documented By: ZENY Insulin Aspart (Insulin Aspart Per Unit) 0 units SC ACHS [facility] Stop: 03/22/22 20:59 Last Admin: 02/20/22 23:01 Dose: Not Given Documented By: TNB Co-signed By: SAURABH Ondansetron HCl (Ondansetron Inj 2 Mg/Ml 2 Ml Vial) 4 mg IV NOW STA Stop: 02/20/22 15:46 Last Admin: 02/20/22 16:01 Dose: 4 mg Documented By: LEAH Ondansetron HCl (Ondansetron Inj 2 Mg/Ml 2 Ml Vial) 4 mg IV NOW STA Stop: 02/20/22 18:37 Last Admin: 02/20/22 19:38 Dose: 4 mg Documented By: MARCOS Oseltamivir Phosphate (Oseltamivir Phosphate 75 Mg Cap) 75 mg PO NOW STA; Protocol Stop: 02/20/22 21:48 Last Admin: 02/20/22 22:54 Dose: 75 mg Documented By: TNB Discharge Plan Visit Data Chief Complaint: Flu Like Symptoms Stated Complaint: COUGH, MIGRANE, FEVERS ED Provider: Sergey Farrar Discharge Problem: Metabolic acidosis Patient Disposition: Admitted As Inpatient Discharge Instructions Interventions: ED Discharge Assessment Last Done: 02/20/22 23:34
[2022-02-20 20:38] LABS: BUN Creatinine Ratio 15.2 (10-20); Calcium 7.5 mg/dl (8.5-10.1); Creatinine Clr Calc Pharmacy 111.7 ml/min; Est GFR (African American) 140.3 ml/min; Est GFR (Non-African American) 121.1 ml/min; Potassium 4.5 mmol/L (3.5-5.1)
[2022-02-20] MEDS ORDERED: STAT IV Infusion **Titration per Protocol STA (20:53)
[2022-02-20] MEDS ORDERED: PHARMACY GLYCEMIC MGMT CONSULT PRN (20:53)
[2022-02-20] MEDS ORDERED: NovoLIN-R BOLUS FROM BAG IV ONE (20:59)
[2022-02-20] MEDS ORDERED: INSULIN REGULAR 250 UNITS in SODIUM CHLORIDE 0.9% 247.5 ML IV SCH (21:00)
[2022-02-20] MEDS ORDERED: INSULIN ASPART PER UNIT SC SCH (21:00)
[2022-02-20] MEDS ORDERED: NORMOSOL-R 1,000 ML IV SCH (21:00)
[2022-02-20] MEDS ORDERED: OSELTAMIVIR PHOSPHATE 75 MG CAP PO STA (21:47)
[2022-02-20] MEDS ORDERED: GLUCAGON FOR INJ 1 MG VIAL IM PRN (22:00)
[2022-02-20] MEDS ORDERED: GLUCOSE 10 TAB/TUBE PO PRN (22:00)
[2022-02-20] MEDS ORDERED: DEXTROSE 50% 50 ML SYRINGE IV PRN (22:00)
[2022-02-20] MEDS ORDERED: GLUCOSE 40% GEL 15 GM TUBE PO PRN (22:00)
[2022-02-20] MEDS ORDERED: CARBOHYDRATES FOR HYPOGLYCEMIA PO PRN (22:00)
--- NOTE | 2022-02-20 22:22 | History & Physical Report ---
Date of Service February 20, 2022 Assessment & Plan (1) Influenza A: Plan: 26-year-old with history of type 1 diabetes presenting with febrile cough, N/V x3 days. Now admitted to [facility] for hyperglycemia concerning for DKA (now resolved), management of influenza A. Cough/congestion/Influenza A * Oseltamivir 75 mg twice daily x5 days * Ibuprofen 200 mg every 4 hours as needed for fever * Supportive therapy: Mucinex, ipratropium nasal spray, Flonase, mIVF (stop at 5 AM) * Resume diet in AM. Encourage oral hydration DM1/DKA/hyperglycemia -DKA, AG resolved without IV insulin. Patient has an insulin pump * Insulin pump * Glycemic consult as needed * Trend BMP Nausea * IV Zofran 4 mg every 4 hours. Convert to p.o. once diet restarted. Headache -Now status post ibuprofen 400 mg x 1 dose. Patient has history of migraine * Reassess in a.m. if not resolved, consider additional therapy (e.g. Excedrin, triptans) Depression/anxiety * Continue home Wellbutrin 300 mg every morning. Code: Full code Dispo: Med-Surg FEN/GI: NPO. IV Normosol at maintenance rate DVT Prophylaxis: Lovenox 40 mg q24h PT/OT: No Consults: None (2) Nausea & vomiting: (3) Diabetic ketoacidosis associated with type 1 diabetes mellitus: (4) Headache: (5) Depression with anxiety: History of Present Illness Primary Care Provider: Marisol Parra MD Wendy is a 26-year-old female with a history of type 1 diabetes mellitus on insulin pump, who presented to the ED with fever, nausea, vomiting x 3 days. She reports her last at-home temp was 100.6 F (does not remember peak temp). In the ED, patient was found to be afebrile, mildly tachycardic. Labs notable for sodium of 132, blood glucose of 230, and proteinuria, glucosuria, ketonuria on UA. Respiratory viral panel positive for influenza A. CXR negative for acute infectious process. On admission, she reports mild improvement with cough, and resolution of vomiting but remains nauseous. ROS + rhinorrhea, nasal congestion, headache, shortness of breath with deep inspiration, mild pleuritic chest pain. She denies dizziness, abdominal pain, diarrhea, or pedal edema. Allergies Allergy/AdvReac Type Severity Reaction Status Date / Time nitrofurantoin AdvReac Intermediate Nausea Verified 02/22/22 20:23 [From Macrobid] Home Medications Medication Instructions Recorded Confirmed Type glucagon HCl 1 mg/mL solution for 1 mg subcut UD PRN hypoglycemia #1 10/02/18 02/22/22 History injection ea bupropion HCl 300 mg 24 hr tablet, 300 mg PO QAM #30 tabs 02/05/22 02/22/22 Rx extended release (Wellbutrin XL) insulin lispro 100 unit/mL 100 unit continuous subcutaneous 02/20/22 02/22/22 History subcutaneous solution (Humalog infusion CONTINOUS U-100 Insulin) norethindrone 1.5 mg-ethinyl 1 tab PO DAILY 02/20/22 02/22/22 History estradiol 30 mcg(21)/iron 75 mg(7) tablet (Marcella Fe 1.5/30 (28)) ondansetron 4 mg disintegrating 4 mg PO TID PRN nausea and 02/21/22 02/22/22 Rx tablet vomiting 3 days #9 tabs oseltamivir 75 mg capsule (Tamiflu) 75 mg PO BID #9 caps 02/21/22 02/22/22 Rx bupropion HCl 150 mg 24 hr tablet, 150 mg PO QAM 02/22/22 02/22/22 History extended release Past Med/Surg History Medical History Chlamydia infection Depression with anxiety Diabetes mellitus type 1 Genital herpes simplex History of pyelonephritis Varicella Vitamin D deficiency Surgical History No significant past surgical history Family History Unknown Type 1 diabetes mellitus Hypertension Thyroid disorder Grandmother Cervical cancer Maternal Grandmother Grandfather Type 2 diabetes mellitus Maternal Other Cerebral aneurysm Denies family history of Ovarian cancer Prostate cancer Myocardial infarction Breast cancer Colorectal cancer Uterine cancer Social History (Updated 10/15/21 @ 09:04 by Nelida Bennett LPN) Smoking Status: Former smoker Tobacco Type: E-cigarettes / Vaping Cigarettes Per Day: 5; Second Hand Exposure: No; Hx Alcohol Use: Yes Alcohol type: wine Hx Substance Use: No Preferred Language: Finnish Communication Ability: Effective Visual Impairment: No Limitations Hearing Ability: Normal Radiation Protection Engineer Required: No Beliefs That Will Affect Care: None marital status: Current Living Situation: Family Current Living Situation Comment: Lives with Grandparents. current occupational status: employed current occupation: [employer] How many Children do You have: 1 Feels Safe at Home: Yes Dental Care, Regularly: No Physical Activity Frequency: Does not Exercise Assistive Devices: None Review of Systems Review of Systems: All systems reviewed & are unremarkable except as noted in HPI & below Physical Exam Physical Exam: General: Tired appearing but alert, interactive woman in no acute distress HEENT: PERRLA. Normal conjunctiva, anicteric sclera. Respiratory: Moderate respiratory effort, CTABL. Cardiovascular: RRR without murmurs, gallops, or rubs. No edema. GI: Soft abdomen with normal bowel sounds heard on auscultation. Nontender x4 quadrants Neuro: Alert and oriented x3. Results & Data Results & Data ([facility]) Vital Signs (Past 12 Hours) Vital Signs Temp Pulse Resp BP Pulse Ox O2 Del Method 02/20/22 15:43 36.7 C 114 H 16 126/70 98 Room Air Supervising Physician Co-Signing Physician Notes Pt seen and examined in concert with . Agree with the documented findings as noted in the resident documentation in both the history and the Physical eaxma and discussed with him the overall plan in detail. Patient presents to ED with viral syndrome associated with uncontrolled diabetes with early DKA. Patient was initially found to have anion gap that was elevated and patient received IV fluids and subcu insulin administered in the ED with resolution of her ketoacidosis. Resident Activity Tracking Resident Involvement: Resident Care Provided Care Provided: Adult Hospital Medicine (1) Diabetic ketoacidosis associated with type 1 diabetes mellitus Diabetes mellitus complication detail: without coma Qualified Code(s): E10.10 - Type 1 diabetes mellitus with ketoacidosis without coma (2) Nausea & vomiting Vomiting Intractability: non-intractable Vomiting type: unspecified Qualified Code(s): R11.2 - Nausea with vomiting, unspecified
[2022-02-20] MEDS ORDERED: IPRATROPIUM BROMIDE NASAL SPRAY 0.06% 15ML NAE PRN (23:53)
[2022-02-21] MEDS ORDERED: IBUPROFEN 200 MG TAB PO STA (00:02)
[2022-02-21] MEDS ORDERED: IBUPROFEN 200 MG TAB PO PRN (00:05)
[2022-02-21 00:17] LABS: BUN Creatinine Ratio 14.1 (10-20); Calcium 7.3 mg/dl (8.5-10.1); Creatinine Clr Calc Pharmacy 115.1 ml/min; Est GFR (African American) 141.7 ml/min; Est GFR (Non-African American) 122.3 ml/min; Potassium 4.4 mmol/L (3.5-5.1)
[2022-02-21] MEDS: ONDANSETRON INJ 2 MG/ML 2 ML VIAL IV PRN ×2 (00:28→12:31)
[2022-02-21 01:20] LABS: Base Excess VBG -14.8 mEq/L; HCO3 VBG 12 mmol/L; Oxygen Saturation VBG 79.2 %; PCO2 VBG 32 mmHg (38-50); PO2 VBG 49 mmHg; pH VBG 7.19 (7.36-7.41)
[2022-02-21] MEDS ORDERED: INSULIN ASPART 100 UNITS/ML VIAL SC PRN (02:30)
[2022-02-21 06:25] LABS: Basophils # (auto) 0.01 K/uL (0-0.2); Basophils % (auto) 0.3 %; Hematocrit (blood only) 42.1 % (34.1-44.9); Immature Granulocytes # (auto) 0.01 K/uL (0.00-0.02); Immature Granulocytes % (auto) 0.3 %; Lymphocytes # (auto) 1.14 K/uL (1.2-3.4); Lymphocytes % (auto) 28.8 %; Mean Corpuscular Hemoglobin 30.4 pg (25.0-34.0); Mean Corpuscular Hgb Conc 33.3 g/dL (32.0-36.0); Mean Corpuscular Volume 91.5 fL (80.0-100.0); Monocytes # (auto) 0.47 K/uL (0.24-0.82); Monocytes % (auto) 11.9 %; Neutrophils # (auto) 2.33 K/uL (1.4-6.5); Neutrophils % (auto) 58.7 %; Platelet Count 158 K/uL (130-400); RDW Coefficient of Variation 11.5 % (11.5-14.5); RDW Standard Deviation 38.5 fL (36.4-46.3); White Blood Count 3.96 K/ul (4.8-10.8)
[2022-02-21] MEDS ORDERED: INSULIN, Rapid-Acting PUMP SCH (07:30)
--- NOTE | 2022-02-21 07:41 | XRay Report ---
XR chest 1V portable CLINICAL HISTORY: weakness, DKA TECHNIQUE: Single frontal radiograph of the chest was obtained. Comparison: Comparison is made to chest radiograph 01/28/2019 FINDINGS: No lines and tubes are seen. The cardiomediastinal silhouette is normal. The lungs are clear. No evid ence of pleural effusion or pneumothorax. IMPRESSION: No acute chest disease. ACT 112: Negative or not required by law. Electronically signed by: Carlos Storey M.D. 02/21/2022 7:40 AM
[2022-02-21] MEDS ORDERED: OSELTAMIVIR PHOSPHATE 75 MG CAP PO SCH (09:00)
[2022-02-21] MEDS ORDERED: FLUTICASONE PROPIONATE NA SPR 16 GM BTL SCH (09:00)
[2022-02-21] MEDS ORDERED: ENOXAPARIN INJ 40 MG/0.4 ML SYR SQ SCH (09:00)
[2022-02-21] MEDS ORDERED: buPROPion XL 300 MG TABCR PO SCH (09:00)
[2022-02-21] MEDS ORDERED: guaiFENesin 600 MG TABCR PO SCH (09:00)
[2022-02-21] MEDS: INSULIN, Rapid-Acting PUMP SCH ×2 (09:44→14:19)
--- NOTE | 2022-02-21 12:20 | Hospitalist Progress Note ---
Date of Service February 21, 2022 Assessment & Plan (1) Influenza A: Plan: 26-year-old with history of type 1 diabetes presenting with febrile cough, N/V x3 days. Now admitted to [facility] for hyperglycemia concerning for DKA (now resolved), management of influenza A. Cough/congestion/Influenza A * Oseltamivir 75 mg twice daily x5 days * Ibuprofen 200 mg every 4 hours as needed for fever * Supportive therapy: Mucinex, ipratropium nasal spray, Flonase, mIVF (stop at 5 AM) * Resume diet in AM. Encourage oral hydration (2) Nausea & vomiting: Plan: Nausea * IV Zofran 4 mg every 4 hours. Convert to p.o. once diet restarted. (3) Diabetic ketoacidosis associated with type 1 diabetes mellitus: Plan: DM1/DKA/hyperglycemia -DKA, AG resolved without IV insulin. Patient has an insulin pump * Insulin pump * Glycemic consult as needed * Trend BMP (4) Headache: Plan: Headache -Now status post ibuprofen 400 mg x 1 dose. Patient has history of migraine * Reassess in a.m. if not resolved, consider additional therapy (e.g. Excedrin, triptans) (5) Depression with anxiety: Plan: Depression/anxiety * Continue home Wellbutrin 300 mg every morning. Plan Code: Full code Dispo: Med-Surg FEN/GI: NPO. IV Normosol at maintenance rate DVT Prophylaxis: Lovenox 40 mg q24h PT/OT: No Consults: None Admission and Anticipated Discharge Date Admission Date: February 20, 2022 Subjective Pateint is awake sitting up in bed in [facility]. She tells me she is feeling much better today compared with yesterday. Her headache, fever and chills have resolved. She is still congested and coughing but has no chest pain, SOB or abdominal pain. She admits to some mild nausea but no vomiting. She tolerated breakfast this morning. Review of Systems Constitutional: + fever, + chills, + body aches and + fatigue Results & Data Results & Data ([facility]) Vital Signs (Past 12 Hours) Vital Signs Temp Pulse Resp BP Pulse Ox O2 Del Method 02/21/22 09:15 Room Air 02/21/22 08:04 36.9 C 93 H 16 120/74 99 Room Air PG Care Time/CCT Total # of Minutes Spent Total Time Spent with Patient: Total time spent is greater than 50% in coordination of care (as documented) at patient's floor/unit and/or counseling patient: Coding Diagnoses Influenza A J10.1 Nausea & vomiting R11.2 Vomiting Intractability: non-intractable Vomiting type: unspecified Diabetic ketoacidosis associated with type 1 diabetes mellitus E10.10 Diabetes mellitus complication detail: without coma Headache R51.9 Depression with anxiety F41.8 (1) Diabetic ketoacidosis associated with type 1 diabetes mellitus Diabetes mellitus complication detail: without coma Qualified Code(s): E10.10 - Type 1 diabetes mellitus with ketoacidosis without coma (2) Nausea & vomiting Vomiting Intractability: non-intractable Vomiting type: unspecified Qualified Code(s): R11.2 - Nausea with vomiting, unspecified
--- NOTE | 2022-02-21 13:59 | Discharge Summary ---
Date of Service February 21, 2022 Admission HPI Per Admitting Provider Wendy is a 26-year-old female with a history of type 1 diabetes mellitus on insulin pump, who presented to the ED with fever, nausea, vomiting x 3 days. She reports her last at-home temp was 100.6 F (does not remember peak temp). In the ED, patient was found to be afebrile, mildly tachycardic. Labs notable for sodium of 132, blood glucose of 230, and proteinuria, glucosuria, ketonuria on UA. Respiratory viral panel positive for influenza A. CXR negative for acute infectious process. On admission, she reports mild improvement with cough, and resolution of vomiting but remains nauseous. ROS + rhinorrhea, nasal congestion, headache, shortness of breath with deep inspiration, mild pleuritic chest pain. She denies dizziness, abdominal pain, diarrhea, or pedal edema. Admission Exam Per Admitting Provider General: Tired appearing but alert, interactive woman in no acute distress HEENT: PERRLA. Normal conjunctiva, anicteric sclera. Respiratory: Moderate respiratory effort, CTABL. Cardiovascular: RRR without murmurs, gallops, or rubs. No edema. GI: Soft abdomen with normal bowel sounds heard on auscultation. Nontender x4 quadrants Neuro: Alert and oriented x3. Principal Diagnosis influenza A Discharge Exam Constitutional WD/WN, vitals as above Eyes PERRL, conjunctivae normal, anicteric sclerae ENMT Throat: uvula midline and + postnasal drainage Neck trachea midline, no thyromegaly Respiratory normal respiratory effort, lungs clear to auscultation Cardiovascular RRR, no murmur, no edema Gastrointestinal (Abdomen) normal bowel sounds, soft, nontender, no hepatosplenomegaly Skin no rashes, warm and dry Psychiatric A+Ox3, euthymic affect Discharge Data Allergies Allergy/AdvReac Type Severity Reaction Status Date / Time nitrofurantoin AdvReac Intermediate Nausea Verified 03/01/22 13:39 [From Macrobid] Consultations 02/20/22 21:56 ED Decision to Admit Stat Ordered Studies XR chest 1V portable CLINICAL HISTORY: weakness, DKA TECHNIQUE: Single frontal radiograph of the chest was obtained. Comparison: Comparison is made to chest radiograph 01/28/2019 FINDINGS: No lines and tubes are seen. The cardiomediastinal silhouette is normal. The lungs are clear. No evidence of pleural effusion or pneumothorax. IMPRESSION: No acute chest disease Diabetes Follow up Patient follows with [facility] endocrinology Has insulin pump Hospital Course (1) Influenza A: Oseltamivir 75 mg twice daily x5 days Ibuprofen 200 mg every 4 hours prn fever Supportive therapy: Mucinex, ipratropium nasal spray, Flonase Continue Dm diet Encourage oral hydration (2) Nausea & vomiting: Zofran prn nausea (3) Diabetic ketoacidosis associated with type 1 diabetes mellitus: Glucose improved with Insulin, IVFs and when able to tolerate po after Zofran (4) Headache: Resolved with IBU and IVfs (5) Depression with anxiety: Continue home Wellbutrin 300mg daily Plan Patient states she is feeling much better and asking to be discharged to home She is tolerating po medications and diet Total Time Total Time Spent Total Time Spent (In Minutes): 32 Discharge Plan Discharge Items Patient Disposition: Home - Self-Care Reason For Visit: DKA, INFLUENZA A Discharge Diagnosis: Influenza A DKA Condition on Discharge: Good Activity: Resume your previous activity Lifting: Gradually increase as tolerated Non-emergency contact: Primary Care Provider and Specialist Call non-emergency contact if: you have any medication questions, your symptoms worsen and your temperature is above 101.5 Follow-up/Referrals: Marisol Parra MD [Primary Care Provider] - 03/04/22 1:00 pm Diet: Carb Count or DM1 Addtl Attending Provider Instructions: You were admitted with fever, elevated blood glucose levels, nausea, vomiting and cough. You were found to have Influenza A and you were started on Tamiflu 75mg one 2 x per day and will need to finish a 5 day total course of this medication. Your blood glucose levels improved without IV insulin. Your nausea and vomiting were treated with IV then po Zofran. 02/21/22 you were able to tolerate po food and medications and your headache also resolved, your vital signs were stable and your fever also had resolved. Pending Studies at Discharge: No Stand-Alone Forms: My [employer], Smoking Cessation Medications and DC Order Prescriptions: Continued bupropion HCl [Wellbutrin XL] 300 mg tablet extended release 24 hr 300 mg PO QAM Qty: 30 2RF glucagon HCl 1 mg recon soln 1 mg subcut UD PRN (Reason: hypoglycemia) Qty: 1 Rx Instructions: use as diredcted UD; 1 mg norethindrone-e.estradiol-iron [Marcella Fe 1.5/30 (28)] 1.5 mg-30 mcg (21)/75 mg (7) tablet 1 tab PO DAILY Rx Instructions: PER PT "WAITING FOR NEW SCRIPT TO BE FILLED". insulin lispro [Humalog U-100 Insulin] 100 unit/mL solution 100 unit continuous subcutaneous infusion CONTINOUS Rx Instructions: NO FURTHER REFILLS UNTIL SEEN IN ENDO TARGET: 80-120 CARB RATIO: 1 UNIT PER 5 GRAMS CARBS BASAL RATES: [id number] 2.6UNITS/HR, [id number] 2.4UNITS/HR No Action benzonatate 200 mg capsule 200 mg PO BID PRN (Reason: cough) Qty: 14 0RF bupropion HCl 150 mg tablet extended release 24 hr 150 mg PO QAM (DME) Ketone Urine Test Strip See Rx Instructions .Route Qty: 50 0RF Rx Instructions: As directed Discharge Orders: Discharge Order (Routine); Ordered 02/21/22 Ordered By: Lexus Smith/Other Patient Handouts: The Flu (Influenza), ED Influenza (Adult) Admission Data Admit Date/Time: 02/20/22 22:27 Attending Provider: Jimmy Schaffer Admit Provider: Sherif Ferro Primary Care Provider: Marisol Parra Other Providers: Albert Green Other Interventions: Discharge Summary Assessment (RN) Last Done: 02/21/22 14:26 Coding Level of Care Code HOSP INP/OBS DISCH 30 MIN/LESS Diagnoses Influenza A J10.1 Nausea & vomiting R11.2 Vomiting Intractability: non-intractable Vomiting type: unspecified Diabetic ketoacidosis associated with type 1 diabetes mellitus E10.10 Diabetes mellitus complication detail: without coma Headache R51.9 Depression with anxiety F41.8 Time Spent (min) 25
== END 2022-02-21 15:53 | disposition home or self-care (01) | DRG 193 ==
LOC: ED 15:20 → SUATTDRO 22:27 → 3E 22:27

== ENCOUNTER 2022-02-22 16:33 | Inpatient (IN) ==
--- NOTE | 2022-02-22 16:41 | ED Triage Note ---
Date of Service February 22, 2022 History of Present Illness This patient was briefly evaluated while in triage. An abbreviated physical exam was performed. This patient is a 26-year-old Female that presents to the ED today with complaints of "hyperglycemia". She was discharged yesterday. She is vomiting and cannot keep anything down (nausea and vomiting). 240s-250s glucose at home despite insulin. She was admitted for DKA and influenza. Glucose 308 in triage. Physical Exam GENERAL: 26 year old female. In no acute distress. Tired appearing. SKIN: No lesions or rashes. HEART: Regular rate and rhythm. LUNGS: Clear to auscultation. ABDOMEN: Bowel sounds normoactive. No guarding or rigidity. No tenderness of palpation. NEURO: Alert and oriented. No deficits. MUSCULOSKELETAL: No deformities to inspection of the extremities. PSYCH: Patient is pleasant and answers all questions appropriately. Initial orders for labs and / or imaging were placed and patient was placed in the waiting area until a bed is available. Please see further documentation for the full ED course.
--- NOTE | 2022-02-22 17:25 | XRay Report ---
XR chest 1V portable HISTORY: 26 years-old Female Cough acute cough COMPARISON: Chest radiograph 02/20/2022 TECHNIQUE: AP view of the chest FINDINGS: Cardiomediastinal and hilar silhouettes are within normal limits. No pneumothorax, pleural effusion, airspace consolidation or overt pulmonary edema. Bones of the chest appear grossly intact. IMPRESSION: No acute process. ACT 112: Negative or not required by law. The above report was generated using voice recognition software. It may contain grammatical, syntax o r spelling errors. Electronically signed by: Saurabh Sanderson M.D. 02/22/2022 5:24 PM
[2022-02-22 19:05] LABS: Basophils # (auto) 0.03 K/uL (0-0.2); Basophils % (auto) 0.3 %; Hematocrit (blood only) 47.1 % (34.1-44.9); Hemoglobin 15.8 g/dl (12.0-16.0); Immature Granulocytes # (auto) 0.04 K/uL (0.00-0.02); Immature Granulocytes % (auto) 0.4 %; Lymphocytes # (auto) 1.31 K/uL (1.2-3.4); Lymphocytes % (auto) 13.9 %; Mean Corpuscular Hemoglobin 30.5 pg (25.0-34.0); Mean Corpuscular Hgb Conc 33.5 g/dL (32.0-36.0); Mean Corpuscular Volume 90.9 fL (80.0-100.0); Mean Platelet Volume 10.4 fL (9.4-12.3); Monocytes # (auto) 0.48 K/uL (0.24-0.82); Monocytes % (auto) 5.1 %; Neutrophils # (auto) 7.59 K/uL (1.4-6.5); Neutrophils % (auto) 80.3 %; Platelet Count 206 K/uL (130-400); RDW Coefficient of Variation 11.5 % (11.5-14.5); RDW Standard Deviation 38.6 fL (36.4-46.3); Red Blood Count 5.18 M/uL (3.93-5.22); White Blood Count 9.45 K/ul (4.8-10.8)
[2022-02-22 19:07] LABS: Base Excess VBG -21.5 mEq/L; HCO3 VBG 7 mmol/L; Oxygen Saturation VBG 96.3 %; PCO2 VBG 22 mmHg (38-50); PO2 VBG 78 mmHg; pH VBG 7.09 (7.36-7.41)
[2022-02-22] MEDS ORDERED: SODIUM CHLORIDE 0.9% 1000ML 2,000 ML IV ONE (19:15)
[2022-02-22 19:38] LABS: Appearance Urine Clear (Clear); Bacteria Urine Automated Negative (Negative); Bilirubin Urine Negative (Negative); Blood Urine Trace (Negative); Color Urine Yellow; Epithelial Cell Urine Auto >30 /lpf (0-5); Glucose Urine UA 3+ (Negative); Ketones Urine 4+ (Negative); Leukocyte Esterase Urine Negative (Negative); Nitrite Urine Negative (Negative); Protein Urine 1+ (Negative); RBC Urine Automated 0-4 /hpf (0-4); Specific Gravity Urine 1.028 (1.000-1.030); Urobilinogen Urine Negative (Negative)
[2022-02-22 19:53] LABS: Pregnancy Test, Urine Negative (Negative)
[2022-02-22 19:57] LABS: Albumin Globulin Ratio 1.2 (0.9-2); Albumin Level 4.2 gm/dl (3.4-5.0); BUN Creatinine Ratio 12.5 (10-20); Bilirubin,Total 0.4 mg/dl (0.2-1.0); Calcium 8.7 mg/dl (8.5-10.1); Creatinine Clr Calc Pharmacy 82.6 ml/min; Est GFR (African American) 104.4 ml/min; Globulin 3.4 gm/dl (2.5-4.0); Magnesium 1.8 mg/dl (1.7-2.4); Potassium 5.5 mmol/L (3.5-5.1); Total Protein 7.6 gm/dl (6.0-8.3)
[2022-02-22] MEDS ORDERED: DEXTROSE 50% 50 ML SYRINGE IV PRN (20:07)
[2022-02-22] MEDS ORDERED: STAT INSULIN DRIP STA (20:07)
[2022-02-22] MEDS ORDERED: CARBOHYDRATES FOR HYPOGLYCEMIA PO PRN (20:07)
[2022-02-22] MEDS ORDERED: GLUCOSE 10 TAB/TUBE PO PRN (20:07)
[2022-02-22] MEDS ORDERED: GLUCOSE 40% GEL 15 GM TUBE PO PRN (20:07)
[2022-02-22] MEDS ORDERED: GLUCAGON FOR INJ 1 MG VIAL SQ PRN (20:07)
[2022-02-22] MEDS ORDERED: ONDANSETRON INJ 2 MG/ML 2 ML VIAL ONE (20:11)
[2022-02-22] MEDS ORDERED: ONDANSETRON INJ 2 MG/ML 2 ML VIAL IV STA (20:27)
--- NOTE | 2022-02-22 20:38 | Emergency Department Note ---
History of Present Illness General Chief complaint: Hyperglycemia Stated complaint: REFER BY DOC,STILL VOMITTING,BLOOD SUGAR HIGH Time Seen by Provider: 02/22/22 19:13 History of Present Illness Provider complaint: Nausea vomiting high blood sugar Onset (ago): day(s) 1 Maximum Pain Intensity: 6 Associated symptoms: + cough, + nausea/vomiting and + weakness; no chest pain, no fever/chills, no headaches or no shortness of breath 26-year-old insulin-dependent diabetic female presents emergency department for nausea vomiting high blood sugar. Patient reports she was discharged from the hospital 2 days ago and reports that earlier today she began having nausea and vomiting. No hematemesis coffee-ground emesis or bilious vomiting. She reports that her blood sugars have been fluctuating from high to normal all day. She reports no chance of . No diarrhea. Patient reports she recently tested positive for influenza. Home Medications Medication Instructions Recorded Confirmed Type glucagon HCl 1 mg/mL solution for 1 mg subcut UD PRN hypoglycemia #1 10/02/18 02/22/22 History injection ea bupropion HCl 300 mg 24 hr tablet, 300 mg PO QAM #30 tabs 02/05/22 02/22/22 Rx extended release (Wellbutrin XL) insulin lispro 100 unit/mL 100 unit continuous subcutaneous 02/20/22 02/22/22 History subcutaneous solution (Humalog infusion CONTINOUS U-100 Insulin) norethindrone 1.5 mg-ethinyl 1 tab PO DAILY 02/20/22 02/22/22 History estradiol 30 mcg(21)/iron 75 mg(7) tablet (Marcella Fe 1.5/30 (28)) ondansetron 4 mg disintegrating 4 mg PO TID PRN nausea and 02/21/22 02/22/22 Rx tablet vomiting 3 days #9 tabs oseltamivir 75 mg capsule (Tamiflu) 75 mg PO BID #9 caps 02/21/22 02/22/22 Rx bupropion HCl 150 mg 24 hr tablet, 150 mg PO QAM 02/22/22 02/22/22 History extended release Allergies Allergy/AdvReac Type Severity Reaction Status Date / Time nitrofurantoin AdvReac Intermediate Nausea Verified 02/22/22 20:23 [From Macrobid] Past Med/Surg History Medical History Chlamydia infection Depression with anxiety Diabetes mellitus type 1 Genital herpes simplex History of pyelonephritis Varicella Vitamin D deficiency Surgical History No significant past surgical history Family History Unknown Type 1 diabetes mellitus Hypertension Thyroid disorder Grandmother Cervical cancer Maternal Grandmother Grandfather Type 2 diabetes mellitus Maternal Other Cerebral aneurysm Denies family history of Ovarian cancer Prostate cancer Myocardial infarction Breast cancer Colorectal cancer Uterine cancer Social History Smoking Status: Former smoker Tobacco Type: E-cigarettes / Vaping Cigarettes Per Day: 5; Second Hand Exposure: No; Hx Alcohol Use: Yes Alcohol type: wine Hx Substance Use: No Preferred Language: Dominican Communication Ability: Effective Visual Impairment: No Limitations Hearing Ability: Normal [place] Operator Required: No Beliefs That Will Affect Care: None marital status: Current Living Situation: Family Current Living Situation Comment: Lives with Grandparents. current occupational status: employed current occupation: [employer] How many Children do You have: 1 Feels Safe at Home: Yes Dental Care, Regularly: No Physical Activity Frequency: Does not Exercise Assistive Devices: None Review of Systems A total of 10 systems reviewed and were otherwise negative Physical Exam Vital Signs Vital Signs - 24 hr 02/22/22 16:42 02/22/22 20:27 02/22/22 20:30 Temperature 36.7 C Temperature Source Temporal Artery Scan Pulse Rate 113 H 107 H 99 H Pulse Rate from SpO2 Sensor 108 H 100 H Pulse Rhythm Regular Pulse Strength Normal Respiratory Rate 20 15 18 Respiratory Effort / Characteristics Non-Labored Spontaneous Respiratory Depth Normal Respiratory Pattern Regular Blood Pressure 132/80 Blood Pressure Mean 97 Blood Pressure Position Sitting Pulse Oximetry 97 100 100 Oxygen Delivery Method Room Air Sepsis Recent Fever Within 48 Hours No Sepsis New/Unexplained Change in Mental Status No Sepsis Action Taken by Nursing No Action Required 02/22/22 20:40 02/22/22 20:50 02/22/22 21:00 Temperature Temperature Source Pulse Rate 104 H 101 H 96 H Pulse Rate from SpO2 Sensor 104 H 102 H 99 H Pulse Rhythm Pulse Strength Respiratory Rate 25 H 25 H 21 Respiratory Effort / Characteristics Respiratory Depth Respiratory Pattern Blood Pressure 123/68 Blood Pressure Mean 86 Blood Pressure Position Pulse Oximetry 98 100 100 Oxygen Delivery Method Sepsis Recent Fever Within 48 Hours Sepsis New/Unexplained Change in Mental Status Sepsis Action Taken by Nursing 02/22/22 21:10 02/22/22 21:20 02/22/22 21:30 Temperature Temperature Source Pulse Rate 101 H 95 H 102 H Pulse Rate from SpO2 Sensor 100 H 102 H Pulse Rhythm Pulse Strength Respiratory Rate 22 19 23 Respiratory Effort / Characteristics Respiratory Depth Respiratory Pattern Blood Pressure Blood Pressure Mean Blood Pressure Position Pulse Oximetry 99 100 Oxygen Delivery Method Sepsis Recent Fever Within 48 Hours Sepsis New/Unexplained Change in Mental Status Sepsis Action Taken by Nursing 02/22/22 21:40 02/22/22 21:50 Temperature Temperature Source Pulse Rate 113 H 103 H Pulse Rate from SpO2 Sensor 113 H 105 H Pulse Rhythm Pulse Strength Respiratory Rate 19 17 Respiratory Effort / Characteristics Respiratory Depth Respiratory Pattern Blood Pressure Blood Pressure Mean Blood Pressure Position Pulse Oximetry 100 93 Oxygen Delivery Method Sepsis Recent Fever Within 48 Hours Sepsis New/Unexplained Change in Mental Status Sepsis Action Taken by Nursing Physical Exam GENERAL: She is oriented to person, place, and time. She appears well-developed and well-nourished. She does not appear distressed. HENT: Exam performed. -Head: Normocephalic and atraumatic. -Right Ear: External ear normal. No mastoid tenderness. -Left Ear: External ear normal. No mastoid tenderness. -Mouth/Throat: The oropharynx is clear and moist. No trismus in the jaw. No dental abscesses or uvula swelling. No oropharyngeal exudate or tonsillar abscesses. EYES: Conjunctivae and EOM are normal. Pupils are equal, round, and reactive to light. Right eye exhibits no discharge. Left eye exhibits no discharge. No scleral icterus. NECK: Normal range of motion. Neck supple. No JVD present. No spinous process tenderness present. No carotid bruit present. No rigidity. No tracheal deviation and normal range of motion present. No Brudzinski's sign and no Kernig's sign noted. CV: tachycardic rate, regular rhythm, normal heart sounds and intact distal pulses. There is no peripheral edema. Palpable radial pulses bue. PULM/CHEST: Effort normal and breath sounds normal. No respiratory distress. No stridor. She has no wheezes. She has no rales. -Chest Wall: She exhibits no tenderness. ABD: The abdomen is soft. Bowel sounds are normal. She has no distension. No mass is present. There is no tenderness. There is no rebound, no guarding, no Lopez's sign and no tenderness at McBurney's point. Rovsig negative MUSC/SKEL: Normal range of motion. There is no peripheral edema, tenderness or deformity. LYMPH: No cervical adenopathy. NEURO: She is alert and oriented to person, place, and time. She has normal strength. No cranial nerve deficit or sensory deficit. Coordination and gait normal. GCS eye subscore is 4. GCS verbal subscore is 5. GCS motor subscore is 6. Cerebellar tests wnl. SKIN: Skin is warm and dry. She is not diaphoretic. PSYCH: She has a normal mood and affect. Behavior is normal. Judgment and thought content normal. Course Course 1912: The patient was evaluated in room C11. A complete history and physical exam was performed Cardiac monitoring: An order was placed for continuous cardiac monitoring. The monitor shows a rate of 110 with sinus tachycardia rhythm External medical records reviewed. Patient was admitted from February 20, 2022 to February 21, 2022 for DKA and influenza. 2010: Vital signs stable. Labs are significant for venous pH of 7.09 with a venous PCO2 on VBG of 22. Sodium 129. Potassium 5.5. Bicarb 7. Anion gap 19. Glucose 380. Patient was given 2 L IV fluid normal saline bolus and will be started on insulin drip. Patient will be admitted to the [facility] hospitalist team Dr. Schafer Administered Medications Insulin Human Regular 250 (units/ Sodium Chloride) 250 mls @ 6.4 mls/hr IV .Q24H [facility]; Protocol Stop: 03/24/22 20:14 Last Titration: 02/22/22 23:32 Dose: 4.1 units/hr, 4.1 mls/hr Documented By: ADRIANA Co-signed By: KOKO Titration: 02/22/22 22:32 Dose: 5.1 units/hr, 5.1 mls/hr Documented By: ADRIANA Co-signed By: KOKO Admin: 02/22/22 21:32 Dose: 6.4 units/hr, 6.4 mls/hr Documented By: ADRIANA Co-signed By: KOKO Discontinued Medications Sodium Chloride (Nss 1000ml) 2,000 mls @ 999 mls/hr IV .Q2H1M ONE Stop: 02/22/22 21:15 Last Infusion: 02/22/22 22:34 Dose: 0 mls/hr Documented By: Admin: 02/22/22 19:20 Dose: 999 mls/hr Documented By: ADRIANA Miscellaneous (Stat Insulin Drip) 1 each N/A NOW STA Stop: 02/22/22 20:08 Last Admin: 02/22/22 21:34 Dose: Not Given Documented By: ADRIANA Ondansetron HCl (Ondansetron Inj 2 Mg/Ml 2 Ml Vial) Confirm Administered Dose 4 mg .ROUTE .STK-MED ONE Stop: 02/22/22 20:12 Last Admin: 02/22/22 20:32 Dose: Not Given Documented By: ADRIANA Ondansetron HCl (Ondansetron Inj 2 Mg/Ml 2 Ml Vial) 4 mg IV NOW STA Stop: 02/22/22 20:28 Last Admin: 02/22/22 20:34 Dose: 4 mg Documented By: ADRIANA Critical Care Time Critical Care Time: Yes Total Critical Care Time: 72 I have personally spent greater than 72 minutes of critical care time in the direct management of this patient. This includes bedside care, interpretation of diagnostic studies, and testing, discussion with consultants, patient, and family members, and other required patient management activities. This 72 minutes is in excess of all separately billable procedures. Medical Decision Making Laboratory Data Result diagrams: 02/22/22 18:56 02/22/22 18:56 Lab Results 02/22/22 02/22/22 02/22/22 Range/Units 16:41 18:55 18:55 WBC (4.8-10.8) K/ul RBC (3.93-5.22) M/uL Hgb (12.0-16.0) g/dl Hct (34.1-44.9) % MCV (80.0-100.0) fL MCH (25.0-34.0) pg MCHC (32.0-36.0) g/dL RDW Std Deviation (36.4-46.3) fL RDW Coeff of Esther (11.5-14.5) % Plt Count (130-400) K/uL MPV (9.4-12.3) fL Immature Gran % (Auto) % Neut % (Auto) % Lymph % (Auto) % [place] % (Auto) % Eos % (Auto) % Baso % (Auto) % Neut # (Auto) (1.4-6.5) K/uL Lymph # (Auto) (1.2-3.4) K/uL [place] # (Auto) (0.24-0.82) K/uL Eos # (Auto) (0-0.50) K/uL Baso # (Auto) (0-0.2) K/uL Immature Gran # (Auto) (0.00-0.02) K/uL VBG pH (7.36-7.41) VBG pCO2 (38-50) mmHg VBG pO2 mmHg VBG HCO3 mmol/L VBG O2 Saturation % VBG Base Excess mEq/L Sodium (136-145) mmol/L Potassium (3.5-5.1) mmol/L Chloride (98-107) mmol/L Carbon Dioxide (21-32) mmol/L Anion Gap (3-11) BUN (6-23) mg/dl Creatinine (0.6-1.2) mg/dl Est Cr Clr Drug Dosing ml/min Est GFR ( Amer) ml/min Est GFR (Non-Af Amer) ml/min BUN/Creatinine Ratio (10-20) Glucose (70-99(Fasting)) mg/dl POC Glucose 308 H* (70-99) mg/dl Calcium (8.5-10.1) mg/dl Magnesium (1.7-2.4) mg/dl Total Bilirubin (0.2-1.0) mg/dl AST (13-39) U/L ALT (7-52) U/L Alkaline Phosphatase (34-104) U/L Total Protein (6.0-8.3) gm/dl Albumin (3.4-5.0) gm/dl Globulin (2.5-4.0) gm/dl Albumin/Globulin Ratio (0.9-2) Lipase (11-82) U/L Urine Color Yellow Urine Appearance Clear (Clear) Urine pH 5.0 (4.5-7.5) Ur Specific [place] 1.028 (1.000-1.030) Urine Protein 1+ H (Negative) Urine Glucose (UA) 3+ H (Negative) Urine Ketones 4+ H (Negative) Urine Blood Trace H (Negative) Urine Nitrite Negative (Negative) Urine Bilirubin Negative (Negative) Urine Urobilinogen Negative (Negative) Ur Leukocyte Esterase Negative (Negative) Urine WBC (Auto) 5-10 H (0-5) /hpf Urine RBC (Auto) 0-4 (0-4) /hpf U Hyaline Cast (Auto) 1-5 (0-5) /lpf U Epithel Cells (Auto) >30 H (0-5) /lpf Urine Bacteria (Auto) Negative (Negative) Urine Test Negative (Negative) SARS-CoV-2, RNA, NAAT (NEGATIVE) 02/22/22 02/22/22 02/22/22 Range/Units 18:56 18:56 18:56 WBC 9.45 (4.8-10.8) K/ul RBC 5.18 (3.93-5.22) M/uL Hgb 15.8 (12.0-16.0) g/dl Hct 47.1 H (34.1-44.9) % MCV 90.9 (80.0-100.0) fL MCH 30.5 (25.0-34.0) pg MCHC 33.5 (32.0-36.0) g/dL RDW Std Deviation 38.6 (36.4-46.3) fL RDW Coeff of Esther 11.5 (11.5-14.5) % Plt Count 206 (130-400) K/uL MPV 10.4 (9.4-12.3) fL Immature Gran % (Auto) 0.4 % Neut % (Auto) 80.3 % Lymph % (Auto) 13.9 % [place] % (Auto) 5.1 % Eos % (Auto) 0.0 % Baso % (Auto) 0.3 % Neut # (Auto) 7.59 H (1.4-6.5) K/uL Lymph # (Auto) 1.31 (1.2-3.4) K/uL [place] # (Auto) 0.48 (0.24-0.82) K/uL Eos # (Auto) 0.00 (0-0.50) K/uL Baso # (Auto) 0.03 (0-0.2) K/uL Immature Gran # (Auto) 0.04 H (0.00-0.02) K/uL VBG pH 7.09 L (7.36-7.41) VBG pCO2 22 L (38-50) mmHg VBG pO2 78 mmHg VBG HCO3 7 mmol/L VBG O2 Saturation 96.3 % VBG Base Excess -21.5 mEq/L Sodium 129 L (136-145) mmol/L Potassium 5.5 H D (3.5-5.1) mmol/L Chloride 103 (98-107) mmol/L Carbon Dioxide 7 L* (21-32) mmol/L Anion Gap 19 H (3-11) BUN 11 (6-23) mg/dl Creatinine 0.88 (0.6-1.2) mg/dl Est Cr Clr Drug Dosing 82.6 ml/min Est GFR ( Amer) 104.4 ml/min Est GFR (Non-Af Amer) 90.0 ml/min BUN/Creatinine Ratio 12.5 (10-20) Glucose 380 H* (70-99(Fasting)) mg/dl POC Glucose (70-99) mg/dl Calcium 8.7 (8.5-10.1) mg/dl Magnesium 1.8 (1.7-2.4) mg/dl Total Bilirubin 0.4 (0.2-1.0) mg/dl AST 21 (13-39) U/L ALT 33 (7-52) U/L Alkaline Phosphatase 96 (34-104) U/L Total Protein 7.6 (6.0-8.3) gm/dl Albumin 4.2 (3.4-5.0) gm/dl Globulin 3.4 (2.5-4.0) gm/dl Albumin/Globulin Ratio 1.2 (0.9-2) Lipase 12 (11-82) U/L Urine Color Urine Appearance (Clear) Urine pH (4.5-7.5) Ur Specific [place] (1.000-1.030) Urine Protein (Negative) Urine Glucose (UA) (Negative) Urine Ketones (Negative) Urine Blood (Negative) Urine Nitrite (Negative) Urine Bilirubin (Negative) Urine Urobilinogen (Negative) Ur Leukocyte Esterase (Negative) Urine WBC (Auto) (0-5) /hpf Urine RBC (Auto) (0-4) /hpf U Hyaline Cast (Auto) (0-5) /lpf U Epithel Cells (Auto) (0-5) /lpf Urine Bacteria (Auto) (Negative) Urine Test (Negative) SARS-CoV-2, RNA, NAAT (NEGATIVE) 02/22/22 02/22/22 Range/Units 21:15 21:26 WBC (4.8-10.8) K/ul RBC (3.93-5.22) M/uL Hgb (12.0-16.0) g/dl Hct (34.1-44.9) % MCV (80.0-100.0) fL MCH (25.0-34.0) pg MCHC (32.0-36.0) g/dL RDW Std Deviation (36.4-46.3) fL RDW Coeff of Esther (11.5-14.5) % Plt Count (130-400) K/uL MPV (9.4-12.3) fL Immature Gran % (Auto) % Neut % (Auto) % Lymph % (Auto) % [place] % (Auto) % Eos % (Auto) % Baso % (Auto) % Neut # (Auto) (1.4-6.5) K/uL Lymph # (Auto) (1.2-3.4) K/uL [place] # (Auto) (0.24-0.82) K/uL Eos # (Auto) (0-0.50) K/uL Baso # (Auto) (0-0.2) K/uL Immature Gran # (Auto) (0.00-0.02) K/uL VBG pH (7.36-7.41) VBG pCO2 (38-50) mmHg VBG pO2 mmHg VBG HCO3 mmol/L VBG O2 Saturation % VBG Base Excess mEq/L Sodium (136-145) mmol/L Potassium (3.5-5.1) mmol/L Chloride (98-107) mmol/L Carbon Dioxide (21-32) mmol/L Anion Gap (3-11) BUN (6-23) mg/dl Creatinine (0.6-1.2) mg/dl Est Cr Clr Drug Dosing ml/min Est GFR ( Amer) ml/min Est GFR (Non-Af Amer) ml/min BUN/Creatinine Ratio (10-20) Glucose (70-99(Fasting)) mg/dl POC Glucose 315 H* (70-99) mg/dl Calcium (8.5-10.1) mg/dl Magnesium (1.7-2.4) mg/dl Total Bilirubin (0.2-1.0) mg/dl AST (13-39) U/L ALT (7-52) U/L Alkaline Phosphatase (34-104) U/L Total Protein (6.0-8.3) gm/dl Albumin (3.4-5.0) gm/dl Globulin (2.5-4.0) gm/dl Albumin/Globulin Ratio (0.9-2) Lipase (11-82) U/L Urine Color Urine Appearance (Clear) Urine pH (4.5-7.5) Ur Specific [place] (1.000-1.030) Urine Protein (Negative) Urine Glucose (UA) (Negative) Urine Ketones (Negative) Urine Blood (Negative) Urine Nitrite (Negative) Urine Bilirubin (Negative) Urine Urobilinogen (Negative) Ur Leukocyte Esterase (Negative) Urine WBC (Auto) (0-5) /hpf Urine RBC (Auto) (0-4) /hpf U Hyaline Cast (Auto) (0-5) /lpf U Epithel Cells (Auto) (0-5) /lpf Urine Bacteria (Auto) (Negative) Urine Test (Negative) SARS-CoV-2, RNA, NAAT NEGATIVE (NEGATIVE) Imaging Data Radiologist's Impression: Chest X-Ray 02/22/22 16:43 XR chest 1V portable HISTORY: 26 years-old Female Cough acute cough COMPARISON: Chest radiograph 02/20/2022 TECHNIQUE: AP view of the chest FINDINGS: Cardiomediastinal and hilar silhouettes are within normal limits. No pneumothorax, pleural effusion, airspace consolidation or overt pulmonary edema. Bones of the chest appear grossly intact. IMPRESSION: No acute process. ACT 112: Negative or not required by law. The above report was generated using voice recognition software. It may contain grammatical, syntax or spelling errors. Electronically signed by: Saurabh Sanderson M.D. 02/22/2022 5:[address] [facility] Narrative 1913: The patient was evaluated in room C11. A complete history and physical exam was performed Cardiac monitoring: An order was placed for continuous cardiac monitoring. The monitor shows a rate of 110 with sinus tachycardia rhythm External medical records reviewed. Patient was admitted from February 20, 2022 to February 21, 2022 for DKA and influenza. 2010: Vital signs stable. Labs are significant for venous pH of 7.09 with a venous PCO2 on VBG of 22. Sodium 129. Potassium 5.5. Bicarb 7. Anion gap 19. Glucose 380. Patient was given 2 L IV fluid normal saline bolus and will be started on insulin drip. Patient will be admitted to the [facility] ist team Dr. Schafer Impression & Plan Diabetic ketoacidosis associated with type 1 diabetes mellitus Discharge Plan Visit Data Chief Complaint: Hyperglycemia Stated Complaint: REFER BY JORGE,ADAL VOMITTING,BLOOD SUGAR HIGH ED Provider: Jessee Ko Discharge Problem: Diabetic ketoacidosis associated with type 1 diabetes mellitus Patient Disposition: Admitted As Inpatient Discharge Instructions Interventions: ED Discharge Assessment Last Done: 02/23/22 00:06
--- NOTE | 2022-02-22 21:02 | History & Physical Report ---
Date of Service February 22, 2022 Assessment & Plan (1) Diabetic ketoacidosis associated with type 1 diabetes mellitus: Plan: 26 yo female with PMHx DM1 on insulin pump and depression/anxiety presented nausea, vomiting, and elevated blood sugars. #DKA #DM1 -discharged 02/21 after being hospitalized for 1 day with influenza A. She did well overnight at home but started having nausea and vomiting again this morning. Home BSGs were in upper 200s. Found to be in DKA upon arrival. -BSG 380, K 5.5, VBG pH 7.09, AG 19, Na 129 (corrected 136) -on DKA protocol. Home insulin pump turned off -s/p 2L NSS in ED. Continue with 1/2NSS @250mls/hr -insulin infusion 6.4units/hr -no potassium replacement or bicarb indicated at this time -zofran for nausea -tylenol for pain/fever -q1h BSG -q4h bmp, mag, phos, VBG -NPO #Influenza A -tested positive on 02/20 with symptom onset ~1 wk prior -chest XR unremarkable -on day 3 of 5 of tamiflu, will continue. -supportive care as above #Depression #Anxiety -cont. home Wellbutrin 300mg DVT ppx: Lovenox FEN/GI: NPO Code Status: Full Dispo: PCU (2) Influenza A: (3) Depression with anxiety: History of Present Illness Chief Complaint: Nausea, vomiting, elevated sugars Primary Care Provider: Marisol Parra MD 26 yo female with PMHx DM1 on insulin pump and depression/anxiety presented nausea, vomiting, and elevated blood sugars. She was recently hospitalized and discharged yesterday with influenza A. Prior to her hospitalization she had been having upper respiratory symptoms for the past week. She was doing well overnight but this morning had nausea and vomiting. Her CGM showed BSG in the upper 200s without resolve from insulin infusion. She has not been able to keep foods down as her last meal was likely yesterday. Endorses fatigue, headache, sore throat, mild sob, cough, mild abd pain. Denies fevers, chest pain, dysuria. Normal bowel movements. Allergies Allergy/AdvReac Type Severity Reaction Status Date / Time nitrofurantoin AdvReac Intermediate Nausea Verified 02/22/22 20:23 [From Macrobid] Home Medications Medication Instructions Recorded Confirmed Type glucagon HCl 1 mg/mL solution for 1 mg subcut UD PRN hypoglycemia #1 10/02/18 02/22/22 History injection ea bupropion HCl 300 mg 24 hr tablet, 300 mg PO QAM #30 tabs 02/05/22 02/22/22 Rx extended release (Wellbutrin XL) insulin lispro 100 unit/mL 100 unit continuous subcutaneous 02/20/22 02/22/22 History subcutaneous solution (Humalog infusion CONTINOUS U-100 Insulin) norethindrone 1.5 mg-ethinyl 1 tab PO DAILY 02/20/22 02/22/22 History estradiol 30 mcg(21)/iron 75 mg(7) tablet (Marcella Fe 1.5/30 (28)) ondansetron 4 mg disintegrating 4 mg PO TID PRN nausea and 02/21/22 02/22/22 Rx tablet vomiting 3 days #9 tabs oseltamivir 75 mg capsule (Tamiflu) 75 mg PO BID #9 caps 02/21/22 02/22/22 Rx bupropion HCl 150 mg 24 hr tablet, 150 mg PO QAM 02/22/22 02/22/22 History extended release Past Med/Surg History Medical History Chlamydia infection Depression with anxiety Diabetes mellitus type 1 Genital herpes simplex History of pyelonephritis Varicella Vitamin D deficiency Surgical History No significant past surgical history Family History Unknown Type 1 diabetes mellitus Hypertension Thyroid disorder Grandmother Cervical cancer Maternal Grandmother Grandfather Type 2 diabetes mellitus Maternal Other Cerebral aneurysm Denies family history of Ovarian cancer Prostate cancer Myocardial infarction Breast cancer Colorectal cancer Uterine cancer Social History Smoking Status: Former smoker Tobacco Type: E-cigarettes / Vaping Cigarettes Per Day: 5; Second Hand Exposure: No; Hx Alcohol Use: Yes Alcohol type: beer Hx Substance Use: No Preferred Language: Belgian Communication Ability: Effective Visual Impairment: No Limitations Hearing Ability: Normal 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 current occupational status: employed current occupation: [employer] How many Children do You have: 1 Feels Safe at Home: Yes Dental Care, Regularly: No Physical Activity Frequency: Does not Exercise Assistive Devices: Glasses Review of Systems Review of Systems: All systems reviewed & are unremarkable except as noted in HPI & below Physical Exam Physical Exam: Constitutional: Well-developed, well-nourished patient, in no acute distress, pleasant. Vitals as above. HEENT: No scleral injection or discharge.Dry mucous membranes. Clear oropharynx without exudate. Neck: Supple without lymphadenopathy or thyromegaly. Trachea midline. Lungs: Clear to auscultation bilaterally with good effort. Cardiac: Mildly tachy. Normal rhythm. No murmurs.No extremity edema. 2+ distal peripheral pulses. Abdomen:Bowel sounds present. Soft and nondistended.Mild diffuse tenderness. No guarding or rebound tenderness. No hepatosplenomegaly. MSK: No cyanosis or clubbing. Extremities motor strength 5/5. Skin: No rashes, warm, dry. Neurologic: Grossly intact cranial nerves. Results & Data Results & Data ([facility]) Vital Signs (Past 12 Hours) Vital Signs Temp Pulse Resp BP Pulse Ox O2 Del Method 02/22/22 16:42 36.7 C 113 H 20 132/80 97 Room Air Laboratory Results Laboratory Results WBC 9.45 K/ul (4.8-10.8) 02/22/22 18:56 RBC 5.18 M/uL (3.93-5.22) 02/22/22 18:56 Hgb 15.8 g/dl (12.0-16.0) 02/22/22 18:56 Hct 47.1 % (34.1-44.9) H 02/22/22 18:56 MCV 90.9 fL (80.0-100.0) 02/22/22 18:56 MCH 30.5 pg (25.0-34.0) 02/22/22 18:56 MCHC 33.5 g/dL (32.0-36.0) 02/22/22 18:56 RDW Std Deviation 38.6 fL (36.4-46.3) 02/22/22 18:56 RDW Coeff of Esther 11.5 % (11.5-14.5) 02/22/22 18:56 Plt Count 206 K/uL (130-400) 02/22/22 18:56 MPV 10.4 fL (9.4-12.3) 02/22/22 18:56 Immature Gran % (Auto) 0.4 % 02/22/22 18:56 Neut % (Auto) 80.3 % 02/22/22 18:56 Lymph % (Auto) 13.9 % 02/22/22 18:56 Polk % (Auto) 5.1 % 02/22/22 18:56 Eos % (Auto) 0.0 % 02/22/22 18:56 Baso % (Auto) 0.3 % 02/22/22 18:56 Neut # (Auto) 7.59 K/uL (1.4-6.5) H 02/22/22 18:56 Lymph # (Auto) 1.31 K/uL (1.2-3.4) 02/22/22 18:56 Polk # (Auto) 0.48 K/uL (0.24-0.82) 02/22/22 18:56 Eos # (Auto) 0.00 K/uL (0-0.50) 02/22/22 18:56 Baso # (Auto) 0.03 K/uL (0-0.2) 02/22/22 18:56 Immature Gran # (Auto) 0.04 K/uL (0.00-0.02) H 02/22/22 18:56 VBG pH 7.09 (7.36-7.41) L 02/22/22 18:56 VBG pCO2 22 mmHg (38-50) L 02/22/22 18:56 VBG pO2 78 mmHg 02/22/22 18:56 VBG HCO3 7 mmol/L 02/22/22 18:56 VBG O2 Saturation 96.3 % 02/22/22 18:56 VBG Base Excess -21.5 mEq/L 02/22/22 18:56 Sodium 129 mmol/L (136-145) L 02/22/22 18:56 Potassium 5.5 mmol/L (3.5-5.1) H D 02/22/22 18:56 Chloride 103 mmol/L (98-107) 02/22/22 18:56 Carbon Dioxide 7 mmol/L (21-32) L* 02/22/22 18:56 Anion Gap 19 (3-11) H 02/22/22 18:56 BUN 11 mg/dl (6-23) 02/22/22 18:56 Creatinine 0.88 mg/dl (0.6-1.2) 02/22/22 18:56 Est Cr Clr Drug Dosing 82.6 ml/min 02/22/22 18:56 Est GFR ( Amer) 104.4 ml/min 02/22/22 18:56 Est GFR (Non-Af Amer) 90.0 ml/min 02/22/22 18:56 BUN/Creatinine Ratio 12.5 (10-20) 02/22/22 18:56 Glucose 380 mg/dl (70-99(Fasting)) H* 02/22/22 18:56 POC Glucose 308 mg/dl (70-99) H* 02/22/22 16:41 Calcium 8.7 mg/dl (8.5-10.1) 02/22/22 18:56 Magnesium 1.8 mg/dl (1.7-2.4) 02/22/22 18:56 Total Bilirubin 0.4 mg/dl (0.2-1.0) 02/22/22 18:56 AST 21 U/L (13-39) 02/22/22 18:56 ALT 33 U/L (7-52) 02/22/22 18:56 Alkaline Phosphatase 96 U/L (34-104) 02/22/22 18:56 Total Protein 7.6 gm/dl (6.0-8.3) 02/22/22 18:56 Albumin 4.2 gm/dl (3.4-5.0) 02/22/22 18:56 Globulin 3.4 gm/dl (2.5-4.0) 02/22/22 18:56 Albumin/Globulin Ratio 1.2 (0.9-2) 02/22/22 18:56 Lipase 12 U/L (11-82) 02/22/22 18:56 Urine Color Yellow 02/22/22 18:55 Urine Appearance Clear (Clear) 02/22/22 18:55 Urine pH 5.0 (4.5-7.5) 02/22/22 18:55 Ur Specific [place] 1.028 (1.000-1.030) 02/22/22 18:55 Urine Protein 1+ (Negative) H 02/22/22 18:55 Urine Glucose (UA) 3+ (Negative) H 02/22/22 18:55 Urine Ketones 4+ (Negative) H 02/22/22 18:55 Urine Blood Trace (Negative) H 02/22/22 18:55 Urine Nitrite Negative (Negative) 02/22/22 18:55 Urine Bilirubin Negative (Negative) 02/22/22 18:55 Urine Urobilinogen Negative (Negative) 02/22/22 18:55 Ur Leukocyte Esterase Negative (Negative) 02/22/22 18:55 Urine WBC (Auto) 5-10 /hpf (0-5) H 02/22/22 18:55 Urine RBC (Auto) 0-4 /hpf (0-4) 02/22/22 18:55 U Hyaline Cast (Auto) 1-5 /lpf (0-5) 02/22/22 18:55 U Epithel Cells (Auto) >30 /lpf (0-5) H 02/22/22 18:55 Urine Bacteria (Auto) Negative (Negative) 02/22/22 18:55 Urine Test Negative (Negative) 02/22/22 18:55 Impressions Chest X-Ray 02/22/22 16:43 XR chest 1V portable HISTORY: 26 years-old Female Cough acute cough COMPARISON: Chest radiograph 02/20/2022 TECHNIQUE: AP view of the chest FINDINGS: Cardiomediastinal and hilar silhouettes are within normal limits. No pneumothorax, pleural effusion, airspace consolidation or overt pulmonary edema. Bones of the chest appear grossly intact. IMPRESSION: No acute process. ACT 112: Negative or not required by law. The above report was generated using voice recognition software. It may contain grammatical, syntax or spelling errors. Electronically signed by: Saurabh Sanderson M.D. 02/22/2022 5:24 PM Supervising Physician Co-Signing Physician Notes Pt seen and examined in concert with Dr. Pollard Agree with the documented findings as noted in the resident documentation in both the history and the Physical exam and discussed with him the overall plan in detail. Patient presents with uncontrolled diabetes and acute diabetic ketoacidosis with elevated anion gap. Patient given IV fluids in the ED which will be continued with close monitoring of the blood sugar. DKA protocol initiated with blood sugar monitoring q. hourly along with electrolyte monitoring every 4 hours. Resident Activity Tracking Resident Involvement: Resident Care Provided Care Provided: Adult Hospital Medicine (1) Diabetic ketoacidosis associated with type 1 diabetes mellitus Diabetes mellitus complication detail: without coma Qualified Code(s): E10.10 - Type 1 diabetes mellitus with ketoacidosis without coma
[2022-02-22] MEDS: INSULIN REGULAR 250 UNITS in SODIUM CHLORIDE 0.9% 247.5 ML IV SCH (21:32)
[2022-02-23] MEDS ORDERED: SODIUM CHLORIDE 0.45 % 1,000 ML IV SCH (00:04)
[2022-02-23] MEDS ORDERED: PHARMACY GLYCEMIC MGMT CONSULT PRN (00:04)
[2022-02-23] MEDS ORDERED: ACETAMINOPHEN 325 MG TAB PO PRN (00:04)
[2022-02-23] MEDS ORDERED: DKA GOAL RANGE 150-250 mg/dl ONE (00:04)
[2022-02-23] MEDS ORDERED: OSELTAMIVIR PHOSPHATE 75 MG CAP PO STA (00:37)
[2022-02-23] MEDS ORDERED: D5W AND 1/2NSS 1,000 ML IV SCH (00:45)
[2022-02-23] MEDS: ONDANSETRON INJ 2 MG/ML 2 ML VIAL IV PRN (01:12)
[2022-02-23 01:25] LABS: BUN Creatinine Ratio 13.2 (10-20); Calcium 7.8 mg/dl (8.5-10.1); Creatinine Clr Calc Pharmacy 95.7 ml/min; Est GFR (African American) 124.6 ml/min; Est GFR (Non-African American) 107.5 ml/min; Magnesium 1.9 mg/dl (1.7-2.4); Phosphorus 2.4 mg/dl (2.5-4.9); Potassium 4.2 mmol/L (3.5-5.1)
[2022-02-23] MEDS: INSULIN ASPART PER UNIT SC SCH ×5 (01:59→21:36)
[2022-02-23] MEDS ORDERED: PENDING 1/2NSS+20mEq KCL IVF SCH (02:00)
[2022-02-23] MEDS ORDERED: PENDING D5 1/2NS+20mEq KCL IVF SCH (02:00)
[2022-02-23] MEDS: INSULIN REGULAR 250 UNITS in SODIUM CHLORIDE 0.9% 247.5 ML IV SCH (03:17)
[2022-02-23] MEDS: D5W AND 1/2NSS + 20MEQ KCL 20 MEQ/1,000 ML BAG IV SCH ×2 (03:45→08:05)
[2022-02-23] MEDS: BENZONATATE 100 MG CAPSULE PO PRN ×3 (05:11→20:46)
[2022-02-23 05:16] LABS: BUN Creatinine Ratio 12.3 (10-20); Calcium 7.5 mg/dl (8.5-10.1); Creatinine Clr Calc Pharmacy 111.8 ml/min; Est GFR (Non-African American) 121.7 ml/min; Magnesium 1.8 mg/dl (1.7-2.4); Phosphorus 1.9 mg/dl (2.5-4.9); Potassium 4.1 mmol/L (3.5-5.1)
[2022-02-23 08:45] LABS: BUN Creatinine Ratio 8.8 (10-20); Calcium 7.6 mg/dl (8.5-10.1); Creatinine Clr Calc Pharmacy 106.9 ml/min; Est GFR (African American) 138.9 ml/min; Est GFR (Non-African American) 119.9 ml/min
[2022-02-23] MEDS ORDERED: COUGH DROP (SUGAR FREE) LOZ 24 LOZ/1 BOX BUCCAL ONE (08:51)
[2022-02-23] MEDS: OSELTAMIVIR PHOSPHATE 75 MG CAP PO SCH ×2 (08:56→20:47)
[2022-02-23] MEDS: ENOXAPARIN INJ 40 MG/0.4 ML SYR SQ SCH (08:56)
[2022-02-23] MEDS: buPROPion XL 300 MG TABCR PO SCH (08:56)
[2022-02-23] MEDS ORDERED: BENZONATATE 100 MG CAPSULE PO SCH (09:00)
--- NOTE | 2022-02-23 09:01 | Hospitalist Progress Note ---
Date of Service February 23, 2022 Assessment & Plan (1) Diabetic ketoacidosis associated with type 1 diabetes mellitus: Plan: 26 yo F Hx DM1, recent Dx of influenza A, depression admitted for DKA in the setting of influenza infection. DKA: Recently admitted with influenza A infection. Presented for N/V with elevated BSGs in 200s, in ER BSG of 380 with elevated anion gap, pH 7.1. Has received IV fluids, insulin infusion, q4h lab checks per DKA protocol with closing of anion gap and improvement in BSGs/pH (now 7.3) and patient symptomatology. Pseudohyponatremia on admission due to high BSGs, Na 136 on last check. Transition to PO diet today, basal/bolus insulin with stopping insulin gtt 1 hour following. Continue to monitor and dispo based on clinical improvement. A1c ordered. (2) Influenza A: Plan: Diagnosed 02/20. Continue Tamiflu, on day 4/5 (completes 02/25/22). Supportive care, cough drops. (3) Depression with anxiety: Plan: Continue Wellbutrin, clarify dose in AM. (4) Hypophosphatemia: Plan: Phos <1 today on DKA labwork, likely from rapid intracellular changes due to insulin, IV fluids. Given KPhos 30mmol IV x1 today with repeat BMP/Mg/Phos in AM. Plan Telemetry for cardiac monitoring given electrolyte shifts in DKA FULL CODE DM1 diet ambulate on demand, low risk of DVT Admission and Anticipated Discharge Date Admission Date: February 22, 2022 Subjective No acute events overnight, improvement this AM in mild tachycardia. Feeling tired, but overall feeling much better today compared to yesterday. No complaints of chest pain, SOB, nausea, diarrhea, abdominal pain. Review of Systems Review of Systems: All systems reviewed & are unremarkable except as noted in Subjective Physical Exam Constitutional: WD/WN, vitals as above Eyes: + anicteric sclerae and PERRL Respiratory: normal respiratory effort, lungs clear to auscultation int ermittent cough Cardiovascular: RRR, no murmur, no edema Gastrointestinal (Abdomen): normal bowel sounds, soft, nontender, no hepa tosplenomegaly Skin: no rashes, warm and dry Neurologic: no tremors no focal neurologic motor or sensory deficits Psychiatric: A+Ox3, euthymic affect Results & Data Results & Data ([facility]) Vital Signs (Past 12 Hours) Vital Signs Temp Pulse Pulse Resp BP BP Pulse Ox 02/23/22 07:38 36.9 C 87 14 104/68 99 02/23/22 01:45 108 H 02/23/22 01:30 36.7 C 100 H 18 123/82 99 02/23/22 00:40 94 H 27 H 100 02/23/22 00:30 95 H 23 100 02/23/22 00:20 98 H 17 100 02/23/22 00:10 107 H 22 100 02/23/22 00:00 108 H 20 100 02/22/22 23:50 101 H 20 100 02/22/22 23:49 133/74 02/22/22 23:49 104 H 20 100 02/22/22 23:48 107 H 10 L 133/74 02/22/22 22:20 106 H 20 100 02/22/22 22:10 97 H 22 100 02/22/22 22:00 104 H 31 H 99 02/22/22 21:50 103 H 17 93 02/22/22 21:40 113 H 19 100 02/22/22 21:30 102 H 23 100 02/22/22 21:20 95 H 19 02/22/22 21:10 101 H 22 99 02/22/22 21:00 96 H 21 123/68 100 O2 Del Method 02/23/22 07:38 Room Air 02/23/22 01:45 02/23/22 01:30 Room Air 02/23/22 00:40 02/23/22 00:30 02/23/22 00:20 02/23/22 00:10 02/23/22 00:00 02/22/22 23:50 02/22/22 23:49 02/22/22 23:49 02/22/22 23:48 02/22/22 22:20 02/22/22 22:10 02/22/22 22:00 02/22/22 21:50 02/22/22 21:40 02/22/22 21:30 02/22/22 21:20 02/22/22 21:10 02/22/22 21:00 PG Care Time/CCT Total # of Minutes Spent Total Time Spent with Patient: Total time spent is greater than 50% in coordination of care (as documented) at patient's floor/unit and/or counseling patient: Coding Level of Care Code 44397 Subseq Hosp Care Lvl 3 Diagnoses Diabetic ketoacidosis associated with type 1 diabetes mellitus E10.10 Influenza A J10.1 Depression with anxiety F41.8 Hypophosphatemia E83.39
[2022-02-23 09:49] LABS: Magnesium 1.8 mg/dl (1.7-2.4); Phosphorus 1.2 mg/dl (2.5-4.9)
[2022-02-23] MEDS ORDERED: LANTUS PER UNIT CHARGE SQ ONE ×2 (11:15→21:00)
[2022-02-23 12:48] LABS: Anion Gap 7 (3-11); BUN Creatinine Ratio 7.4 (10-20); Blood Urea Nitrogen 4 mg/dl (6-23); Calcium 8.2 mg/dl (8.5-10.1); Carbon Dioxide 17 mmol/L (21-32); Chloride 112 mmol/L (98-107); Creatinine Clr Calc Pharmacy 134.6 ml/min; Est GFR (African American) 149.9 ml/min; Est GFR (Non-African American) 129.3 ml/min; Glucose 215 mg/dl (70-99(Fasting)); Potassium 3.5 mmol/L (3.5-5.1); Sodium 136 mmol/L (136-145)
[2022-02-23 12:51] LABS: Magnesium 1.9 mg/dl (1.7-2.4)
[2022-02-23 12:54] LABS: Phosphorus < 1.0 mg/dl (2.5-4.9)
[2022-02-23] MEDS ORDERED: POTASSIUM PHOS 3 MMOL/1 ML INFUSION IV STA (12:56)
[2022-02-23] MEDS ORDERED: POTASSIUM PHOSPHATE 30 MMOL in SODIUM CHLORIDE 0.9% 500 ML IV ONE (13:30)
--- NOTE | 2022-02-23 14:39 | Pharmacy Report ---
Pharmacy Glycemic Short Note 2 - Date of Service February 23, 2022 - Glycemic Short BSG Results (Last 24 hours): 02/22/22 02/22/22 02/22/22 16:41 18:56 21:26 Glucose 380 H* POC Glucose 308 H* 315 H* 02/22/22 02/22/22 02/23/22 22:38 23:36 00:27 Glucose POC Glucose 251 H 202 H 185 H 02/23/22 02/23/22 02/23/22 00:47 01:33 02:41 Glucose 205 H POC Glucose 154 H 153 H 02/23/22 02/23/22 02/23/22 03:44 04:41 05:00 Glucose 240 H POC Glucose 205 H 222 H 02/23/22 02/23/22 02/23/22 05:43 06:42 07:35 Glucose POC Glucose 246 H 270 H 245 H 02/23/22 02/23/22 02/23/22 08:03 08:39 09:30 Glucose 272 H POC Glucose 235 H 252 H 02/23/22 02/23/22 02/23/22 10:33 11:38 12:04 Glucose 215 H POC Glucose 253 H 202 H 02/23/22 02/23/22 12:36 13:39 Glucose POC Glucose 163 H 147 H OUTPATIENT ANTIDIABETIC REGIMEN: * Humalog pump (settings per outpatient note from 03/27/21) * Basal rates: 7348-9604: 2.6 units/hr, 2514-4866: 2.4 units/hr * CF: 35, ICR: 5, unsure of BSG goal range HbA1c: 11.9% (10/24/21) ASSESSMENT: * GENA is a 26 year old female who was recently discharged from [place] on 02/21 following 1 day hospitalization * Readmitted overnight for DKA * Presenting labs of CO2: 7, anion gap: 19, BSG 380 mg/dL, pH: 7.09 * IV insulin infusion + IV fluids initiated, labs have improved and gap is now closed * Transition to SC basal/bolus initiated this morning * Possibly premature discontinuation of insulin infusion, but did so ~3 hours after basal dose administered in light of afternoon phosphorus level < 1 mg/dL * 30 mmol Kphos IV ordered * Will utilize reported home pump settings to guide initial dosing of SC basal/bolus PLAN FOR INPATIENT GLYCEMIC CONTROL: * Hold outpatient Humalog pump * Basal insulin * Lantus 50 units SC x 1 this morning for transition off insulin infusion (~80% of home basal) * Lantus 0-10 units SC HS (see EHR for details) * Bolus insulin * NovoLog per scale ACHS or Q6hrs while NPO * Goal Range: Low 110 mg/dL - High 140 mg/dL * Correction Factor: 35 mg/dL/unit * Nutritional / Prandial insulin per carb ratio of 1 unit per 5 grams CHO consumed
[2022-02-24] MEDS: ONDANSETRON INJ 2 MG/ML 2 ML VIAL IV PRN ×2 (00:16→15:45)
[2022-02-24] MEDS: guaiFENesin/CODEINE 100MG/10MG 5ML UDC PO PRN ×4 (00:32→21:19)
[2022-02-24] MEDS: INSULIN ASPART PER UNIT SC SCH ×6 (00:40→21:18)
[2022-02-24 06:16] LABS: Base Excess VBG -0.5 mEq/L; HCO3 VBG 24 mmol/L; Oxygen Saturation VBG 89.3 %; PCO2 VBG 39 mmHg (38-50); PO2 VBG 53 mmHg
[2022-02-24] MEDS: BENZONATATE 100 MG CAPSULE PO PRN ×2 (06:23→21:19)
[2022-02-24 06:43] LABS: Anion Gap 8 (3-11); BUN Creatinine Ratio 3.9 (10-20); Blood Urea Nitrogen 2 mg/dl (6-23); Calcium 8.2 mg/dl (8.5-10.1); Carbon Dioxide 22 mmol/L (21-32); Chloride 109 mmol/L (98-107); Creatinine Clr Calc Pharmacy 142.7 ml/min; Est GFR (African American) > 150.0 ml/min; Est GFR (Non-African American) 131.8 ml/min; Glucose 119 mg/dl (70-99(Fasting)); Magnesium 1.8 mg/dl (1.7-2.4); Phosphorus 1.8 mg/dl (2.5-4.9); Potassium 3.3 mmol/L (3.5-5.1); Sodium 139 mmol/L (136-145)
[2022-02-24] MEDS ORDERED: POTASSIUM CHLORIDE CRTAB 20 MEQ TABCR PO STA (07:43)
[2022-02-24] MEDS ORDERED: POTASSIUM PHOS 3 MMOL/1 ML INFUSION IV STA (07:43)
[2022-02-24] MEDS ORDERED: POTASSIUM PHOSPHATE 15 MMOL in SODIUM CHLORIDE 0.9% 250 ML IV ONE (08:00)
[2022-02-24] MEDS: buPROPion XL 300 MG TABCR PO SCH (08:37)
[2022-02-24] MEDS: OSELTAMIVIR PHOSPHATE 75 MG CAP PO SCH ×2 (08:37→21:20)
[2022-02-24] MEDS: ENOXAPARIN INJ 40 MG/0.4 ML SYR SQ SCH (08:37)
[2022-02-24] MEDS: buPROPion XL 150 MG TABCR PO SCH (08:37)
[2022-02-24] MEDS ORDERED: LANTUS PER UNIT CHARGE SQ SCH (09:00)
[2022-02-24 11:26] LABS: Estimated Average Glucose 200 mg/dl; Hemoglobin A1C 8.6 % (4.5-5.6)
--- NOTE | 2022-02-24 12:54 | Hospitalist Progress Note ---
Date of Service February 24, 2022 Assessment & Plan (1) Diabetic ketoacidosis associated with type 1 diabetes mellitus: Plan: 26 yo F Hx DM1, recent Dx of influenza A, depression admitted for DKA in the setting of influenza infection. DKA: Chronic illness with severe exacerbation in the setting of influenza A. Presented for N/V with elevated BSGs in 200s, in ER BSG of 380 with elevated anion gap, pH 7.1. 02/23 received IV fluids, insulin infusion, q4h lab checks per DKA protocol with closing of anion gap and improvement in BSGs/pH and patient symptomatology. 02/24 pH of 7.4, continued improvement, with BSGs now in 100s. Pseudohyponatremia on admission due to high BSGs, resolved. Transition to patient's insulin pump tomorrow morning and see how her BSGs respond through lunch. A1c 8.6%, not at goal for age, follow up with PCP. (2) Influenza A: Plan: Diagnosed 02/20. Continue Tamiflu, on day 45 (completes 02/25/22). Supportive care, cough drops, guaifenesin. (3) Depression with anxiety: Plan: Continue home Wellbutrin. (4) Hypokalemia: Plan: K 3.3 today in the setting of insulin infusion yesterday for DKA. Given KCl 40meq PO, as well as KPhos described below (total 60 meq today). Repeat K in AM. (5) Hypophosphatemia: Plan: Phos 1.0->1.8 today after receiving IV repletion yesterday KPhos 15mmol IV x1 given today. Repeat Phos in AM. Plan Telemetry for cardiac monitoring given electrolyte shifts in DKA FULL CODE DM1 diet ambulate on demand, low risk of DVT Admission and Anticipated Discharge Date Admission Date: February 22, 2022 Subjective No acute events overnight. Cough improved today. Review of Systems Review of Systems: All systems reviewed & are unremarkable except as noted in Subjective Physical Exam Constitutional: WD/WN, vitals as above Respiratory: normal respiratory effort, lungs clear to auscultation Cardiovascular: RRR, no murmur, no edema Gastrointestinal (Abdomen): normal bowel sounds, soft, nontender, no hepatosplenomegaly Skin: no rashes, warm and dry Psychiatric: A+Ox3, euthymic affect Results & Data Results & Data ([facility]) Vital Signs (Past 12 Hours) Vital Signs Temp Pulse Pulse Resp BP BP Pulse Ox 02/24/22 12:49 36.9 C 95 H 18 121/82 99 02/24/22 08:00 80 02/24/22 08:00 02/24/22 07:19 36.7 C 88 17 112/72 97 02/24/22 03:47 88 02/24/22 03:25 36.8 C 88 17 109/70 100 O2 Del Method 02/24/22 12:49 Room Air 02/24/22 08:00 02/24/22 08:00 Room Air 02/24/22 07:19 Room Air 02/24/22 03:47 02/24/22 03:25 Room Air PG Care Time/CCT Total # of Minutes Spent Total Time Spent with Patient: Total time spent is greater than 50% in coordination of care (as documented) at patient's floor/unit and/or counseling patient: Coding Level of Care Code 39172 Subseq Hosp Care Lvl 3 Diagnoses Diabetic ketoacidosis associated with type 1 diabetes mellitus E10.10 Influenza A J10.1 Depression with anxiety F41.8 Hypokalemia E87.6 Hypophosphatemia E83.39
--- NOTE | 2022-02-24 14:13 | Pharmacy Report ---
Pharmacy Glycemic Short Note 2 - Date of Service February 24, 2022 - Glycemic Short BSG Results (Last 24 hours): 02/23/22 02/23/22 02/23/22 14:35 16:52 20:26 Glucose POC Glucose 105 H 81 166 H 02/24/22 02/24/22 02/24/22 00:25 05:08 05:58 Glucose 119 H POC Glucose 162 H 108 H 02/24/22 02/24/22 08:09 12:20 Glucose POC Glucose 129 H 91 OUTPATIENT ANTIDIABETIC REGIMEN: * Humalog pump (settings per outpatient note from 03/27/21) * Basal rates: 9202-2507: 2.6 units/hr, 6705-2153: 2.4 units/hr * CF: 35, ICR: 5, unsure of BSG goal range HbA1c: 11.9% (10/24/21) ASSESSMENT: 02/24 * Patient transitioned off insulin drip yesterday, received 50 units of basal for drip transition * BSGs well controlled this morning - plan to continue with 50 units once daily, this is still a decrease from home basal dose per pump * No change to CF/Cr * Discussed with provider this morning and hopefully get insulin pump back on tomorrow AM / I d/c further basal orders for now. Notified provider that pharmacy would not follow if back on pump 02/23 * GENA is a 26 year old female who was recently discharged from [place] on 02/21 following 1 day hospitalization * Readmitted overnight for DKA * Presenting labs of CO2: 7, anion gap: 19, BSG 380 mg/dL, pH: 7.09 * IV insulin infusion + IV fluids initiated, labs have improved and gap is now closed * Transition to SC basal/bolus initiated this morning * Possibly premature discontinuation of insulin infusion, but did so ~3 hours after basal dose administered in light of afternoon phosphorus level < 1 mg/dL * 30 mmol Kphos IV ordered * Will utilize reported home pump settings to guide initial dosing of SC basal/bolus PLAN FOR INPATIENT GLYCEMIC CONTROL: * Hold outpatient Humalog pump * Basal insulin * Lantus 50 units SC daily (~80% of home basal) * Bolus insulin * NovoLog per scale ACHS or Q6hrs while NPO * Goal Range: Low 110 mg/dL - High 140 mg/dL * Correction Factor: 35 mg/dL/unit * Nutritional / Prandial insulin per carb ratio of 1 unit per 5 grams CHO consumed
[2022-02-25 05:20] LABS: BUN Creatinine Ratio 3.3 (10-20); Calcium 8.3 mg/dl (8.5-10.1); Creatinine Clr Calc Pharmacy 123.1 ml/min; Est GFR (African American) 144.8 ml/min; Est GFR (Non-African American) 124.9 ml/min; Magnesium 1.9 mg/dl (1.7-2.4); Phosphorus 2.8 mg/dl (2.5-4.9); Potassium 3.5 mmol/L (3.5-5.1)
[2022-02-25] MEDS ORDERED: NON-FORMULARY MEDICATION (Insulin Lispro [Humalog U-100 Insulin] 100 unit/mL solution) continuous subcutaneous infusion SCH (07:00)
[2022-02-25] MEDS ORDERED: INSULIN, Rapid-Acting PUMP SCH (07:30)
[2022-02-25] MEDS ORDERED: INSULIN ASPART 100 UNITS/ML VIAL SC PRN (07:30)
[2022-02-25] MEDS: guaiFENesin/CODEINE 100MG/10MG 5ML UDC PO PRN ×2 (07:34→13:12)
[2022-02-25] MEDS: BENZONATATE 100 MG CAPSULE PO PRN (07:34)
[2022-02-25] MEDS: buPROPion XL 150 MG TABCR PO SCH (07:35)
[2022-02-25] MEDS: ENOXAPARIN INJ 40 MG/0.4 ML SYR SQ SCH (07:35)
[2022-02-25] MEDS: buPROPion XL 300 MG TABCR PO SCH (07:35)
[2022-02-25] MEDS: OSELTAMIVIR PHOSPHATE 75 MG CAP PO SCH (07:35)
--- NOTE | 2022-02-25 08:44 | Pharmacy Report ---
Pharmacy Glycemic Sign Off Nt - Date of Service February 25, 2022 - Assessment & Plan ASSESSMENT: * Pharmacy was consulted by Dr Pollard on 02/23 for glycemic control and to write orders per [facility] inpatient glycemic control protocol. * Major changes made by pharmacy to antidiabetic regimen include: * Transition off of insulin drip to basal/bolus insulin * Patient has resumed use of home insulin pump this AM, which will be self- managed by patient per agreement. No pharmacy oversight. PLAN FOR INPATIENT GLYCEMIC CONTROL: Home insulin pump per patient * Pharmacy is signing off of glycemic consult and will no longer be making adjustments to inpatient regimen. Please feel free to re-consult if needed. Thank you.
--- NOTE | 2022-02-25 11:47 | Discharge Summary ---
Discharge Summary Date of Service February 25, 2022 Admission HPI Per Admitting Provider 26 yo female with PMHx DM1 on insulin pump and depression/anxiety presented nausea, vomiting, and elevated blood sugars. She was recently hospitalized and discharged yesterday with influenza A. Prior to her hospitalization she had been having upper respiratory symptoms for the past week. She was doing well overnight but this morning had nausea and vomiting. Her CGM showed BSG in the upper 200s without resolve from insulin infusion. She has not been able to keep foods down as her last meal was likely yesterday. Endorses fatigue, headache, sore throat, mild sob, cough, mild abd pain. Denies fevers, chest pain, dysuria. Normal bowel movements. Admission Exam Per Admitting Provider Constitutional: Well-developed, well-nourished patient, in no acute distress, pleasant. Vitals as above. HEENT: No scleral injection or discharge.Dry mucous membranes. Clear oropharynx without exudate. Neck: Supple without lymphadenopathy or thyromegaly. Trachea midline. Lungs: Clear to auscultation bilaterally with good effort. Cardiac: Mildly tachy. Normal rhythm. No murmurs.No extremity edema. 2+ distal peripheral pulses. Abdomen:Bowel sounds present. Soft and nondistended.Mild diffuse tenderness. No guarding or rebound tenderness. No hepatosplenomegaly. MSK: No cyanosis or clubbing. Extremities motor strength 5/5. Skin: No rashes, warm, dry. Neurologic: Grossly intact cranial nerves. Principal Dx & Hospital Course #1 = Principal Diagnosis (1) Diabetic ketoacidosis associated with type 1 diabetes mellitus: 26 yo F Hx DM1, recent Dx of influenza A, depression admitted for DKA in the setting of influenza infection. DKA: Chronic illness with severe exacerbation in the setting of influenza A. Presented for N/V with elevated BSGs in 200s, in ER BSG of 380 with elevated anion gap, pH 7.1. 02/23 received IV fluids, insulin infusion, q4h lab checks per DKA protocol with closing of anion gap and improvement in BSGs/pH and patient symptomatology. 02/24 pH of 7.4, continued improvement, with BSGs now in 100s-200s. Pseudohyponatremia on admission due to high BSGs, resolved. Transitioned to patient's insulin pump this morning and with good BSG control 100-200. A1c 8.6%, not at goal for age, follow up with PCP/Endocrinology. Given sick day instructions as well as prescription for ketone strips. (2) Influenza A: Diagnosed 02/20. Continue Tamiflu, on day 4/5 (completes 02/25/22). Supportive care, cough drops, guaifenesin. Did send with some guaifenesin/codeine cough syrup for next few days for intermittent cough. (3) Depression with anxiety: Continue home Wellbutrin. (4) Hypokalemia: K normal on day of discharge, 3.5. Hypokalemic earlier in stay while receiving insulin infusion and copious IV fluids for DKA. (5) Hypophosphatemia: Resolved. Plan Dispo to home with self care, PCP and Endo follow up Discharge Exam Constitutional WD/WN, vitals as above Respiratory normal respiratory effort, lungs clear to auscultation Cardiovascular RRR, no murmur, no edema Gastrointestinal (Abdomen) normal bowel sounds, soft, nontender, no hepatosplenomegaly Updated Medication List Medication Instructions Recorded Confirmed Type glucagon HCl 1 mg/mL solution for 1 mg subcut UD PRN hypoglycemia #1 10/02/18 02/22/22 History injection ea bupropion HCl 300 mg 24 hr tablet, 300 mg PO QAM #30 tabs 02/05/22 02/22/22 Rx extended release (Wellbutrin XL) insulin lispro 100 unit/mL 100 unit continuous subcutaneous 02/20/22 02/22/22 History subcutaneous solution (Humalog infusion CONTINOUS U-100 Insulin) norethindrone 1.5 mg-ethinyl 1 tab PO DAILY 02/20/22 02/22/22 History estradiol 30 mcg(21)/iron 75 mg(7) tablet (Marcella Fe 1.5/30 (28)) bupropion HCl 150 mg 24 hr tablet, 150 mg PO QAM 02/22/22 02/22/22 History extended release acetone (urine) test (Ketone Urine #50 ea 02/25/22 Rx Test strips) codeine 10 mg-guaifenesin 100 mg/5 5 ml PO Q6H PRN cough 5 days #118 02/25/22 Rx mL oral liquid (Guaiatussin AC) mL Hospital Stay Data Consultations 02/22/22 20:07 ED Decision to Admit Stat Discharge Instructions Given to Patient (Per Discharging Provider) You were admitted to the hospital due to what is called diabetic ketoacidosis, when the ketone levels (a waste product when the body uses fat for energy) build up from high sugars and not having enough insulin in the body. This often happens due to illness, and in your case was probably because of the influenza infection. You were given insulin and IV fluids to get your body acid levels back to normal and given electrolytes like potassium as well. Your symptoms and blood sugars improved and you were felt to be safe for discharge home with the following recommendations: 1) Closely monitor your blood sugars with your insulin pump. Your A1c was 8.6%; please follow up this number with your primary care doctor Dr Parra in the near future to discuss if any changes should be made to your current regimen. Please return for urgent evaluation if you have return of your symptoms, concerning blood sugar levels for you, or other concerns such as trouble breathing or chest pain. 2) Please follow the information and directions offered to you by the staff development educator with regard to your diabetes care on your sick days. Please call Dr. Parra's office at [phone] to schedule a follow up appointment to discuss your hospitalization and any other care concerns post- hospitalization. Total Time Total Time Spent Total Time Spent (In Minutes): 40 Coding Level of Care Code D/C DAY MANAGEMENT >30 MINS Diagnoses Diabetic ketoacidosis associated with type 1 diabetes mellitus E10.10 Influenza A J10.1 Depression with anxiety F41.8 Hypokalemia E87.6 Hypophosphatemia E83.39
== END 2022-02-25 14:02 | disposition home or self-care (01) | DRG 193 ==
LOC: ED 16:33 → SUATTDRO 21:55 → EDINP 21:55 → 4W 02-23 00:06